=== PATIENT | male | born 1950 | race Caucasian/White ===

== ENCOUNTER → 2017-09-15 | Outpatient (CLI) | payer MEDICARE, MEDICAID ==
--- NOTE | 2017-09-15 15:43 | Diagnostic Imaging Report ---
PROCEDURE: CT abdomen and pelvis without contrast. TECHNIQUE: Multiple contiguous axial images were obtained through the abdomen and pelvis without the use of intravenous contrast. INDICATION: Mid abdominal pain and right flank pain with hematuria. No prior examinations are available for comparison. FINDINGS: The lung bases are clear. Heart size is normal. The liver is normal in size without focal lesions. Gallbladder is surgically absent. There is no biliary ductal dilatation. The spleen is normal. The pancreas and adrenal glands are unremarkable. There is a right renal cyst. There is also a left renal cyst. The appendix is normal. There is no evidence of obstructive uropathy. There is moderate atherosclerotic calcification of the aorta which is nonaneurysmal. Bowel gas pattern is nonspecific. There is no free air. There is no ascites. There are no focal inflammatory changes. There is no pelvic mass or adenopathy. Evaluation of the pelvic structures is limited due to beam hardening artifact from a left hip arthroplasty. There is mild thoracolumbar spondylosis. IMPRESSION: Bilateral renal cysts; however, no evidence of obstructive uropathy. Normal appendix. Moderate thoracolumbar spondylosis. Moderate atherosclerotic calcification of the aorta which is nonaneurysmal. No other acute abnormality in the abdomen or pelvis. Dictated by: Dictated on workstation # [id number]
== END ==
LOC: RAD 15:03
PROVIDERS: ATTEND Urology
DX: N28.1 Cyst of kidney, acquired (principal); M47.815 Spondylosis without myelopathy or radiculopathy, thoracolumbar region; I70.0 Atherosclerosis of aorta
CPT/HCPCS: 74176

== ENCOUNTER 2017-10-14 03:20 | Inpatient (IN) | payer MEDICARE, MEDICAID ==
[~2017-10-14] VITALS: Ht 177.8 cm; Wt 98.5 kg
--- NOTE | 2017-10-14 03:46 | ED General ---
General Chief Complaint: Respiratory Problems Stated Complaint: SOB,DT'S Nursing Triage Note: pt presents to er with complaint of sob and chest pain. states he has been taking percocets for 12-14 years and has not been taking them for the last week. pt states that he is scared to go to sleep and take anything to help him sleep. Nursing Sepsis Screen: No Definite Risk Source of Information: Patient Exam Limitations: No Limitations History of Present Illness Date Seen by Provider: October 14, 2017 Time Seen by Provider: 03:27 Initial Comments Here with report report of not being able to breathe. States that he's been getting this feeling since he has gone off his Xanax and Percocet. He stopped these abruptly one to 2 weeks ago, not really sure exactly which day. He has been having these episodes were he feels like he can't breathe when he lays down and gets very anxious and then just can't sleep or can't go to sleep. States that his stomach feels like it's tied up in knots. Admits that this may be withdrawal symptoms. Denies alcohol or other drugs. States that he couldn' t sleep tonight because he kept waking up startled as he was going to sleep and then was worried that he was going to stop breathing and . Timing/Duration: 1 Week, Intermittent Severity: Moderate Associated Systoms: No Cough, No Fever/Chills, No Nausea/Vomiting, No Shortness of Air, No Weakness Allergies and Home Medications Allergies Coded Allergies: codeine (Verified Allergy, Unknown, 10/14/17) iodine (Verified Allergy, Unknown, 10/14/17) Patient Home Medication List Home Medication List Reviewed: Yes Review of Systems Constitutional: see HPI; No chills, No fever EENTM: no symptoms reported Respiratory: see HPI, short of breath; No wheezing Cardiovascular: No chest pain, No edema; palpitations Gastrointestinal: abdominal pain (central upper); No nausea, No vomiting Genitourinary: no symptoms reported Musculoskeletal: back pain (chronic); No neck pain Skin: no symptoms reported Psychiatric/Neurological: See HPI, Anxiety, Emotional Problems; Denies Headache , Denies Numbness, Denies Paresthesia, Denies Weakness Hematologic/Lymphatic: No Symptoms Reported All Other Systems Reviewed Negative Unless Noted: Yes Past Lwpxupp-Bwushv-Zwlxzf Hx Past Med/Social Hx: Reviewed Nursing Past Med/Soc Hx Patient Social History Alcohol Use: Denies Use Recreational Drug Use: No Smoking Status: Former Smoker 2nd Hand Smoke Exposure: Yes Recent Foreign Travel: No Contact w/Someone Who Travel: No Recent Infectious Disease Expo: No Immunizations Up To Date PED Vaccines UTD: Yes Past Medical History Surgeries: Yes Orthopedic Respiratory: Yes COPD Cardiac: Yes Hypertension Neurological: No Genitourinary: Yes Prostate Problems Musculoskeletal: No Endocrine: No Cancer: No Psychosocial: Yes Sleep Difficulties, Anxiety, Depression Integumentary: Yes Blood Disorders: No Family Medical History Reviewed Nursing Family Hx No Pertinent Family Hx Physical Exam Vital Signs Vital Signs - First Documented 10/14/17 03:26 Temp 98.2 Pulse 73 Resp 15 B/P (MAP) 196/113 (140) Pulse Ox 98 O2 Delivery Room Air Capillary Refill : Less Than 3 Seconds General Appearance: WD/WN, Anxious HEENT: PERRL/EOMI, Pharynx Normal Neck: Non Tender, Supple Respiratory: Lungs Clear, Normal Breath Sounds Cardiovascular: Regular Rate, Rhythm, No Murmur Gastrointestinal: Non Tender, Soft Back: Normal Inspection, No CVA Tenderness, No Vertebral Tenderness Extremity: Normal Range of Motion, Non Tender Neurologic/Psychiatric: Alert, Oriented x3, Other (anxious appearing) Skin: Normal Color, Warm/Dry Progress/Results/Core Measures Suspected Sepsis Recent Fever Within 48 Hours: No Infection Criteria Present: None New/Unexplained Altered Menta: No Sepsis Screen: No Definite Risk SIRS Temperature:98.2 Pulse: 73 Respiratory Rate: 15 Laboratory Tests 10/14/17 04:15: White Blood Count 5.0 Blood Pressure 196 /113 Mean: 140 Laboratory Tests 10/14/17 04:15: Creatinine 1.08, Platelet Count 186, Total Bilirubin 2.1H Results/Orders Lab Results Laboratory Tests Test 10/14/17 04:15 10/14/17 05:43 Range/Units White Blood Count 5.0 4.3-11.0 10^3/uL Red Blood Count 4.22 L 4.35-5.85 10^6/uL Hemoglobin 13.8 13.3-17.7 G/DL Hematocrit 36 L 40-54 % Mean Corpuscular Volume 86 80-99 FL Mean Corpuscular Hemoglobin 33 25-34 PG Mean Corpuscular Hemoglobin Concent 38 H 32-36 G/DL Red Cell Distribution Width 13.1 10.0-14.5 % Platelet Count 186 130-400 10^3/uL Mean Platelet Volume 9.3 7.4-10.4 FL Neutrophils (%) (Auto) 70 42-75 % Lymphocytes (%) (Auto) 19 12-44 % Monocytes (%) (Auto) 11 0-12 % Eosinophils (%) (Auto) 1 0-10 % Basophils (%) (Auto) 0 0-10 % Neutrophils # (Auto) 3.5 1.8-7.8 X 10^3 Lymphocytes # (Auto) 0.9 L 1.0-4.0 X 10^3 Monocytes # (Auto) 0.6 0.0-1.0 X 10^3 Eosinophils # (Auto) 0.0 0.0-0.3 10^3/uL Basophils # (Auto) 0.0 0.0-0.1 10^3/uL Sodium Level 132 L 135-145 MMOL/L Potassium Level 2.7 L 3.6-5.0 MMOL/L Chloride Level 98 98-107 MMOL/L Carbon Dioxide Level 20 L 21-32 MMOL/L Anion Gap 14 5-14 MMOL/L Blood Urea Nitrogen 9 7-18 MG/DL Creatinine 1.08 0.60-1.30 MG/DL Estimat Glomerular Filtration Rate > 60 BUN/Creatinine Ratio 8 Glucose Level 141 H 70-105 MG/DL Calcium Level 9.2 8.5-10.1 MG/DL Total Bilirubin 2.1 H 0.1-1.0 MG/DL Aspartate Amino Transf (AST/SGOT) 45 H 5-34 U/L Alanine Aminotransferase (ALT/SGPT) 23 0-55 U/L Alkaline Phosphatase 35 L 40-136 U/L Troponin I < 0.30 <0.30 NG/ML Total Protein 7.1 6.4-8.2 GM/DL Albumin 4.5 3.2-4.5 GM/DL My Orders Orders - SALOMON BLANCHARD MD Cbc With Automated Diff (10/14/17 03:39) Comprehensive Metabolic Panel (10/14/17 03:39) Troponin I (10/14/17 03:39) Ekg Tracing (10/14/17 03:39) Clonidine Tablet (Catapres Tablet) (10/14/17 04:15) Saline Lock/Iv-Start (10/14/17 04:52) Lactated Ringers (Lr 1000 Ml Iv Solution (10/14/17 04:52) Potassium Chloride (Tablet) (Klor Con Ta (10/14/17 05:00) Lactated Ringers (Lr 1000 Ml Iv Solution (10/14/17 04:49) Ct Abdomen/Pelvis Wo (10/14/17 04:58) Ua Culture If Indicated (10/14/17 05:29) Drug Screen Stat (Urine) (10/14/17 05:29) Ketorolac Injection (Toradol Injection) (10/14/17 05:30) Medications Given in ED Current Medications Medications Dose Ordered Sig/Garrett Route Start Time Stop Time Status Last Admin Dose Admin Clonidine HCl 0.2 mg ONCE ONCE PO 10/14/17 04:15 10/14/17 04:16 DC 10/14/17 04:20 0.2 MG Lactated Ringer's 1,000 ml @ 0 mls/hr Q0M ONCE IV 10/14/17 04:52 10/14/17 04:54 DC 10/14/17 05:01 1,000 MLS/HR Potassium Chloride 40 meq ONCE ONCE PO 10/14/17 05:00 10/14/17 05:01 DC 10/14/17 05:02 40 MEQ Vital Signs/I&O 10/14/17 03:26 Temp 98.2 Pulse 73 Resp 15 B/P (MAP) 196/113 (140) Pulse Ox 98 O2 Delivery Room Air Capillary Refill : Less Than 3 Seconds Blood Pressure Mean: 140 Progress Note : Progress Note Seen and evaluated. labs and EKG ordered. Clonidine 0.2 mg by mouth for hypertension and for possibility of narcotic withdrawal as the cause of symptoms. Monitor patient. 0500: CT abdomen and pelvis without contrast ordered due to complaint of central abdominal pain and fullness. Total bilirubin elevated. Patient denies previous surgeries. Blood pressure is improved. Patient seems confused and withdraw is still a concern. 0530: Cholecystectomy noted on CT scan. Results pending. Patient does not remember ever having his gallbladder out. Records review shows the patient should've been off narcotics for a couple months now but it seems that he may only have been off benzodiazepines for a few days. This may be benzodiazepine withdrawal. I discussed the case with Dr. Sethi. He accepts patient for admission, observation status. Patient does have hypokalemia. KCl 40 mEq by mouth has been given and we will order 40 mEq IV as well. Normal saline 1 L bolus running. Patient is complaining of right hip pain. Toradol 30 mg IV ordered. Patient agrees to admission. ECG Initial ECG Impression Date: October 14, 2017 Initial ECG Impression Time: 03:49 Initial ECG Rate: 68 Initial ECG Rhythm: Normal Sinus Initial ECG Comparisson: No Previous ECG Available Comment Sinus rhythm with normal axis. No evidence of ST elevation CO. Interpreted by me. No previous EKG available for comparison. Diagnostic Imaging Diagonstic Imaging: CT Plain Films/CT/US/NM/MRI: abdomen, pelvis Comments Underdistention versus mild wall thickening of the ascending colon raises concern for mild infectious versus inflammatory colitis, although similar in appearance to prior study. Lipoma ptosis of the colon is also seen which is nonspecific although can be seen and chronic IBD. Correlate clinically. Mild enteritis may present. Consider repeat CT of the abdomen with oral contrast to further evaluate the bowel. Reviewed: Reviewed Night Alexx Study, Reviewed by Me Departure Communication (Admissions) Time/Spoke to Admitting Phy: 05:30 Impression Primary Impression: Altered mental status Qualified Codes: R41.0 - Disorientation, unspecified Additional Impressions: Medication withdrawal Qualified Codes: F13.239 - Sedative, hypnotic or anxiolytic dependence with withdrawal, unspecified Hypokalemia Disposition: ADMITTED INPATIENT Condition: Stable Admissions Decision to Admit Reason: Admit from ER (General) Decision to Admit/Date: October 14, 2017 Time/Decision to Admit Time: 05:30 Departure-Patient Inst. Referrals: LAZARO SETHI DO (PCP/Family) Primary Care Physician SALOMON BLANCHARD MD October 14, 2017 03:46
[2017-10-14] MEDS ORDERED: cloNIDine 0.1 MG (CATAPRES) TAB PO ONE (04:15)
[2017-10-14 04:25] LABS: BASOPHILS % (AUTO) 0 % (0-10); EOSINOPHILS % (AUTO) 1 % (0-10); HEMATOCRIT 36 % (40-54); HEMOGLOBIN 13.8 G/DL (13.3-17.7); LYMPHOCYTES # (AUTO) 0.9 X 10^3 (1.0-4.0); LYMPHOCYTES % (AUTO) 19 % (12-44); MEAN CORPUSCULAR HEMOGLOBIN 33 PG (25-34); MEAN CORPUSCULAR HGB CONC 38 G/DL (32-36); MEAN CORPUSCULAR VOLUME 86 FL (80-99); MEAN PLATELET VOLUME 9.3 FL (7.4-10.4); MONOCYTES # (AUTO) 0.6 X 10^3 (0.0-1.0); MONOCYTES % (AUTO) 11 % (0-12); NEUTROPHILS # (AUTO) 3.5 X 10^3 (1.8-7.8); NEUTROPHILS % (AUTO) 70 % (42-75); PLATELET COUNT 186 10^3/uL (130-400); RED BLOOD COUNT 4.22 10^6/uL (4.35-5.85); RED CELL DISTRIBUTION WIDTH 13.1 % (10.0-14.5)
[2017-10-14 04:42] LABS: ALANINE AMINOTRANSFERASE 23 U/L (0-55); ALBUMIN 4.5 GM/DL (3.2-4.5); ALKALINE PHOSPHATASE 35 U/L (40-136); BILIRUBIN,TOTAL 2.1 MG/DL (0.1-1.0); BUN/CREATININE RATIO 8; CALCIUM 9.2 MG/DL (8.5-10.1); CARBON DIOXIDE 20 MMOL/L (21-32); CHLORIDE 98 MMOL/L (98-107); CREATININE SERUM 1.08 MG/DL (0.60-1.30); GFR ESTIMATED > 60; GLUCOSE 141 MG/DL (70-105); POTASSIUM 2.7 MMOL/L (3.6-5.0); SODIUM 132 MMOL/L (135-145); TOTAL PROTEIN 7.1 GM/DL (6.4-8.2)
[2017-10-14] MEDS ORDERED: LACTATED RINGERS 1,000 ML IV ONE ×2 (04:49→04:52)
[2017-10-14] MEDS ORDERED: KCL 10 MEQ TAB (MICRO K) PO ONE (05:00)
[2017-10-14] MEDS ORDERED: KETOROLAC 30 MG/ML VIAL IVP STA (05:30)
[2017-10-14 05:58] LABS: BILIRUBIN,URINE NEGATIVE (NEGATIVE); CLARITY,URINE CLEAR; COLOR,URINE YELLOW; GLUCOSE, URINE (UA) NEGATIVE (NEGATIVE); KETONES,URINE NEGATIVE (NEGATIVE); LEUKOCYTE ESTERASE ,URINE NEGATIVE (NEGATIVE); NITRITE,URINE NEGATIVE (NEGATIVE); PH,URINE 7 (5-9); PROTEIN,URINE 3+ (NEGATIVE); UROBILINOGEN,URINE 1 MG/DL (NORMAL)
[2017-10-14 06:16] LABS: AMPHETAMINE SCREEN, URINE NEGATIVE (NEGATIVE); BARBITURATE SCREEN URINE NEGATIVE (NEGATIVE); BENZODIAZEPINES SCREEN URINE POSITIVE (NEGATIVE); CANNABINOID SCREEN, URINE NEGATIVE (NEGATIVE); COCAINE SCREEN URINE NEGATIVE (NEGATIVE); METHADONE STAT NEGATIVE (NEGATIVE); METHAMPHETAMINE SCREEN URINE S NEGATIVE (NEGATIVE); OPIATE SCREEN URINE NEGATIVE (NEGATIVE); OXYCODONE STAT NEGATIVE (NEGATIVE); PROPOXYPHENE STAT NEGATIVE (NEGATIVE); TRICYCLIC ANTIDEPRESSANTS SCRE NEGATIVE (NEGATIVE)
[2017-10-14] MEDS ORDERED: PANT40TA3 PO (06:18)
[2017-10-14] MEDS ORDERED: AMLO2.5T PO (06:19)
[2017-10-14] MEDS ORDERED: OFLO5DRO3 OS (06:19)
[2017-10-14] MEDS ORDERED: TAMS0.4C2 PO (06:19)
[2017-10-14] MEDS ORDERED: LOSA100T28 PO (06:19)
[2017-10-14] MEDS ORDERED: METO-395 PO (06:19)
[2017-10-14 06:29] LABS: BACTERIA,URINE NEGATIVE /HPF; SQUAMOUS EPITHELIAL CELL,UR RARE /HPF
[2017-10-14] MEDS ORDERED: NS IV 1000 ML 1,000 ML ONE (07:06)
[2017-10-14] MEDS ORDERED: cloNIDine 0.2 MG (CATAPRES) TAB PO PRN (07:15)
[2017-10-14] MEDS: NS IV 1000 ML 1,000 ML IV SCH ×2 (07:48→17:39)
[2017-10-14 08:00] VITALS: BP 168/83
--- NOTE | 2017-10-14 08:05 | Diagnostic Imaging Report ---
PROCEDURE: CT abdomen and pelvis without contrast. TECHNIQUE: Multiple contiguous axial images were obtained through the abdomen and pelvis without the use of intravenous contrast. INDICATION: Abdominal pain and fullness. Exam compared 09/15/2017. There are no opaque kidney stones. There is no hydronephrosis. Bilateral low density renal nodule is unchanged likely cystic. The gallbladder surgically absent with no pathological bile duct dilatation. Spleen, adrenals and pancreas are unremarkable. Aortoiliac vessels are atherosclerotic but nonaneurysmal. There is noninflamed sigmoid diverticulosis. No perienteric or pericolonic edema. There is no focal inflammatory process. There is incomplete distention of segments of the colon and along with the absence of enteric and vascular contrast media limit sensitivity for evaluating the bowel wall. No acute abnormality, however, identified. There is no ascites, obstruction or free air. No pneumatosis. IMPRESSION: No obstructive features, inflammatory process or acute abnormalities identified. Unchanged from prior. Dictated by: Dictated on workstation # [id number]
[2017-10-14] MEDS ORDERED: FLUT16SP22 NS (08:23)
--- NOTE | 2017-10-14 08:32 | History & Physicial ---
History of Present Illness History of Present Illness Reason for visit/HPI Patient states he does not feel good. Patient states he got lost coming to the emergency room via [place]. Patient states she's supposed to have surgery tomorrow on his right hip. Patient says he has sores on his arms and spoke to the surgeon and told not to have surgery as long as he has any sores. Patient states he's recently got off Xanax. Patient confused. She gives different stories to different people. Patient states he has bedbugs at home and that swelling he has the sores Date of Admission October 14, 2017 at 05:35 Time Seen by Provider: 08:25 I consulted on this patient on 10/14/17 08:26 Attending Physician Aden Sethi DO Admitting Physician Aden Sethi DO Consult Allergies and Home Medications Allergies Coded Allergies: codeine (Verified Allergy, Unknown, 10/14/17) iodine (Verified Allergy, Unknown, 10/14/17) Home Medications Amlodipine Besylate 2.5 Mg Tablet, 2.5 MG PO DAILY, (Reported) Fluticasone Propionate 16 Gm [place].susp, 2 SPRAYS NS DAILY, (Reported) Losartan Potassium 100 Mg Tablet, 100 MG PO DAILY, (Reported) Metoprolol Succinate 100 Mg Tab.er.24h, 100 MG PO DAILY, (Reported) Pantoprazole Sodium 40 Mg Tablet.dr, 40 MG PO DAILY, (Reported) Tamsulosin HCl 0.4 Mg Cap.er.24h, 0.4 MG PO 1730, (Reported) Patient Home Medication List Home Medication List Reviewed: No Past Gcgfunt-Dacwuf-Jdrjmo Hx Patient Social History Alcohol Use: Denies Use Recreational Drug Use: No Smoking Status: Former Smoker 2nd Hand Smoke Exposure: Yes Recent Foreign Travel: No Contact w/other who traveled: No Recent Infectious Disease Expo: No Immunizations Up To Date Pediatric: Yes Surgeries Yes Orthopedic Respiratory Yes Cardiovascular Yes Hypertension Neurological No Genitourinary Yes Prostate Problems Musculoskeletal No Endocrine History of Endocrine Disorders: No Cancer No Psychosocial History of Psychiatric Problem: Yes Behavioral Health Disorders: Sleep Difficulties, Anxiety, Depression Integumentary History of Skin or Integumenta: Yes Blood Transfusions History of Blood Disorders: No Family Medical History Significant Family History: No Pertinent Family Hx Constitutional: weakness EENTM: no symptoms reported Respiratory: no symptoms reported Cardiovascular: no symptoms reported Gastrointestinal: abdominal pain Genitourinary: no symptoms reported Physical Exam Vital Signs Vital Signs - First Documented 10/14/17 03:26 Temp 98.2 Pulse 73 Resp 15 B/P (MAP) 196/113 (140) Pulse Ox 98 O2 Delivery Room Air Capillary Refill : Less Than 3 Seconds General Appearance: No Apparent Distress, WD/WN Eyes: Bilateral Eye Normal Inspection HEENT: Normal ENT Inspection Neck: Full Range of Motion, Normal Inspection, Non Tender Respiratory: Chest Non Tender, No Accessory Muscle Use, No Respiratory Distress Cardiovascular: Regular Rate, Rhythm, No Murmur Gastrointestinal: Non Tender Assessment/Plan Assessment and Plan Hypokalemia. Xanax withdrawal. Confusion. Hypertension. Right hip problem Admission Diagnosis Admission Status: Observation ADEN SETHI DO October 14, 2017 08:32
[2017-10-14] MEDS: meTOprolol SUCCINATE 100 MG (TOPROL XL) TAB PO SCH (08:44)
[2017-10-14] MEDS: POTASSIUM CL 10 MEQ/50 ML IVPB (PRE-MIX) IV SCH ×4 (08:44→12:59)
[2017-10-14] MEDS ORDERED: PRED5DRO3 OS (09:17)
[2017-10-14] MEDS ORDERED: ALPR1TAB7 PO (09:17)
[2017-10-14] MEDS ORDERED: AMLO5TAB2 PO (09:20)
[2017-10-14 12:00] VITALS: BP 172/84
[2017-10-14] MEDS: ENOXAPARIN 40 MG/0.4 ML (LOVENOX) SYR SC SCH (12:59)
[2017-10-14 16:30] VITALS: BP 128/71
[2017-10-14 20:23] VITALS: BP 147/83
[2017-10-15] VITALS: BP 160/79
[2017-10-15 03:24] VITALS: BP 170/83
[2017-10-15] MEDS: NS IV 1000 ML 1,000 ML IV SCH (03:44)
--- NOTE | 2017-10-15 07:15 | Progress Note (SOAP) ---
Subjective Time Seen by Provider: 07:05 Subjective/Events-last exam Patient had some confusion early this morning. Waiting for psych consult. Already done Patient breaking out on body better area Patient did not sleep last night Objective Exam Vital Signs Date Time Temp Pulse Resp B/P (MAP) Pulse Ox O2 Delivery O2 Flow Rate FiO2 10/15/17 03:24 98.8 52 20 170/83 (112) 97 Room Air 10/15/17 01:00 53 10/15/17 00:00 98.8 60 20 160/79 (106) 97 Room Air 10/14/17 20:23 99.0 57 20 147/83 (104) 97 Room Air 10/14/17 19:00 67 10/14/17 16:30 97.1 62 20 128/71 (90) 97 Room Air 10/14/17 12:00 99.1 56 20 172/84 (113) 97 Room Air 10/14/17 09:00 Room Air 10/14/17 08:21 97 Room Air 10/14/17 08:00 99.1 63 22 168/83 (111) 97 Room Air I & O 10/15/17 07:00 Intake Total 1930 ml Balance 1930 ml Capillary Refill : Less Than 3 SecondsLess Than 3 Seconds General Appearance: No Apparent Distress, WD/WN HEENT: Normal ENT Inspection Neck: Full Range of Motion, Normal Inspection Respiratory: No Accessory Muscle Use, No Respiratory Distress Cardiovascular: Regular Rate, Rhythm Assessment/Plan Assessment/Plan Assess & Plan/Chief Complaint Hypokalemia. Withdrawal from benzodiazepine. Hypertension. Insomnia. Confusion this a.m. Clinical Quality Measures Admission Status Admission Dx Hypokalemia. Xanax withdrawal. Confusion. Hypertension. Right hip problem DVT/VTE Risk/Contraindication: Risk Factor Score Per Nursin RFS Level Per Nursing on Admit: 4+=Very High LAZARO SETHI DO October 15, 2017 07:15
[2017-10-15 07:25] VITALS: BP 164/86
[2017-10-15 08:09] LABS: HEMOGLOBIN 12.3 G/DL (13.3-17.7); MEAN PLATELET VOLUME 9.4 FL (7.4-10.4); RED BLOOD COUNT 3.77 10^6/uL (4.35-5.85); RED CELL DISTRIBUTION WIDTH 13.7 % (10.0-14.5); WHITE BLOOD COUNT 4.2 10^3/uL (4.3-11.0)
[2017-10-15 08:29] LABS: BUN/CREATININE RATIO 10; CALCIUM 8.6 MG/DL (8.5-10.1); CARBON DIOXIDE 25 MMOL/L (21-32); CHLORIDE 103 MMOL/L (98-107); CREATININE SERUM 0.84 MG/DL (0.60-1.30); GFR ESTIMATED > 60; GLUCOSE 107 MG/DL (70-105); POTASSIUM 3.4 MMOL/L (3.6-5.0); SODIUM 135 MMOL/L (135-145)
[2017-10-15] MEDS: LOSARTAN 100 MG (COZAAR) TABLET PO SCH (08:49)
[2017-10-15] MEDS: TAMSULOSIN 0.4 MG (FLOMAX) CAP PO SCH (08:49)
[2017-10-15] MEDS: amLODIPine 5 MG (NORVASC) TAB PO SCH (08:49)
[2017-10-15] MEDS: ALPRAZolam 1 MG (XANAX) TAB PO SCH ×2 (08:49→12:24)
[2017-10-15] MEDS: meTOprolol SUCCINATE 100 MG (TOPROL XL) TAB PO SCH ×2 (08:49)
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
[2017-10-15 12:00] VITALS: BP 155/73
[2017-10-15] MEDS: ENOXAPARIN 40 MG/0.4 ML (LOVENOX) SYR SC SCH (12:24)
[2017-10-15 15:36] VITALS: BP 136/73
[2017-10-15 20:04] VITALS: BP 140/80
[2017-10-15] MEDS: busPIRone 10 MG (BUSPAR) TAB PO SCH (20:19)
[2017-10-15] MEDS ORDERED: KCL 10 MEQ TAB (MICRO K) PO NR (21:00)
[2017-10-15] MEDS ORDERED: KCL 10 MEQ TAB (MICRO K) PO SCH (21:00)
[2017-10-16] VITALS (8 sets, daily range): BP systolic 138–186; BP diastolic 73–99
[2017-10-16 05:27] LABS: HEMOGLOBIN 13.3 G/DL (13.3-17.7); MEAN PLATELET VOLUME 9.6 FL (7.4-10.4); RED BLOOD COUNT 4.07 10^6/uL (4.35-5.85); RED CELL DISTRIBUTION WIDTH 13.3 % (10.0-14.5); WHITE BLOOD COUNT 4.8 10^3/uL (4.3-11.0)
[2017-10-16 05:44] LABS: BUN/CREATININE RATIO 13; CALCIUM 8.8 MG/DL (8.5-10.1); CARBON DIOXIDE 23 MMOL/L (21-32); CHLORIDE 102 MMOL/L (98-107); CREATININE SERUM 1.02 MG/DL (0.60-1.30); GFR ESTIMATED > 60; GLUCOSE 104 MG/DL (70-105); POTASSIUM 3.4 MMOL/L (3.6-5.0); SODIUM 135 MMOL/L (135-145)
--- NOTE | 2017-10-16 07:31 | Progress Note (SOAP) ---
Subjective Time Seen by Provider: 07:30 Subjective/Events-last exam Patient doesn't show confusion. Patient doing better. Patient stable. Patient appears to have dementia. Patient to be evaluated for dementia. Patient lives alone. To get social work program coordinator involved. Objective Exam Vital Signs Date Time Temp Pulse Resp B/P (MAP) Pulse Ox O2 Delivery O2 Flow Rate FiO2 10/16/17 04:57 98.2 65 18 155/75 (101) 98 Room Air 10/16/17 01:00 75 10/16/17 00:00 97.0 65 20 162/83 (109) 98 Room Air 10/15/17 20:04 98.9 70 18 140/80 (100) 95 Room Air 10/15/17 19:00 67 10/15/17 15:36 98.7 69 18 136/73 (94) 97 Room Air 10/15/17 13:00 67 10/15/17 12:00 99.0 64 20 155/73 (100) 96 Room Air I & O 10/16/17 07:00 Intake Total 1910 ml Output Total 1600 ml Balance 310 ml Capillary Refill : Less Than 3 SecondsLess Than 3 Seconds General Appearance: No Apparent Distress HEENT: Normal ENT Inspection Neck: Full Range of Motion, Normal Inspection Respiratory: Lungs Clear, No Accessory Muscle Use, No Respiratory Distress Cardiovascular: Regular Rate, Rhythm Gastrointestinal: non tender, soft Results Lab Laboratory Tests 10/15/17 07:52 10/16/17 05:20 Laboratory Tests 10/15/17 07:52: White Blood Count 4.2L, Red Blood Count 3.77L, Hemoglobin 12.3L, Hematocrit 33L , Mean Corpuscular Volume 88, Mean Corpuscular Hemoglobin 33, Mean Corpuscular Hemoglobin Concent 37H, Red Cell Distribution Width 13.7, Platelet Count 162, Mean Platelet Volume 9.4, Sodium Level 135, Potassium Level 3.4L, Chloride Level 103, Carbon Dioxide Level 25, Anion Gap 7, Blood Urea Nitrogen 8, Creatinine 0.84, Estimat Glomerular Filtration Rate > 60, BUN/Creatinine Ratio 10, Glucose Level 107H, Calcium Level 8.6 10/16/17 05:20: White Blood Count 4.8, Red Blood Count 4.07L, Hemoglobin 13.3, Hematocrit 36L, Mean Corpuscular Volume 88, Mean Corpuscular Hemoglobin 33, Mean Corpuscular Hemoglobin Concent 37H, Red Cell Distribution Width 13.3, Platelet Count 160, Mean Platelet Volume 9.6, Sodium Level 135, Potassium Level 3.4L, Chloride Level 102, Carbon Dioxide Level 23, Anion Gap 10, Blood Urea Nitrogen 13, Creatinine 1.02, Estimat Glomerular Filtration Rate > 60, BUN/Creatinine Ratio 13, Glucose Level 104, Calcium Level 8.8 Assessment/Plan Assessment/Plan Assess & Plan/Chief Complaint Hypokalemia. Withdrawal from benzodiazepine. Hypertension. Insomnia. Confusion this a.m. . 10/16/17. Hypokalemia basically resolved. Withdrawal from benzodiazepine. Withdrawal from Percocet. Hypertension better. Insomnia. Patient appears to have dementia to have this checked out. To get social work program coordinator involved Clinical Quality Measures Admission Status Admission Dx Hypokalemia. Xanax withdrawal. Confusion. Hypertension. Right hip problem DVT/VTE Risk/Contraindication: Risk Factor Score Per Nursin RFS Level Per Nursing on Admit: 4+=Very High LAZARO SETHI DO October 16, 2017 07:31
[2017-10-16] MEDS: meTOprolol SUCCINATE 100 MG (TOPROL XL) TAB PO SCH ×2 (07:37→08:11)
[2017-10-16] MEDS ORDERED: KCL 10 MEQ TAB (MICRO K) PO NR (07:44)
[2017-10-16] MEDS: busPIRone 10 MG (BUSPAR) TAB PO SCH (08:11)
[2017-10-16] MEDS: LOSARTAN 100 MG (COZAAR) TABLET PO SCH (08:11)
[2017-10-16] MEDS: TAMSULOSIN 0.4 MG (FLOMAX) CAP PO SCH (08:11)
[2017-10-16] MEDS: amLODIPine 5 MG (NORVASC) TAB PO SCH (08:11)
[2017-10-16] MEDS: ENOXAPARIN 40 MG/0.4 ML (LOVENOX) SYR SC SCH (11:43)
[2017-10-16] MEDS ORDERED: ALPRAZolam 1 MG (XANAX) TAB PO NR (13:47)
--- NOTE | 2017-10-16 14:50 | ST Cognitive Linguistic Eval ---
Speech Evaluation-General Medical Diagnosis Hypokalemia Onset Date: October 16, 2017 Therapy Diagnosis Therapy Diagnosis: Mild Cognitive Deficit, Confusion Precautions Precautions/Isolations: Standard Precautions Referral Referring Physician: Dr. Aden Servin Reason for Referral: Evaluation/Treatment Cognitive Evaluation Medical History Pertinent Medical History: HTN Current History The patient was recently admitted to [facility] with a diagnosis of hypokalemia and withdrawal from Xanax. Per RN, the patient has conversed appropriately, however, does appear to being displaying withdrawal symptoms. Reviewed History: Yes Speech PLF-Current Status Prior Level of Function The patient denied prior challenges with speech, language, or cognition. To note, the patient has only completed a ninth grade education prior to enlisting in the [employer]. Per patient, "I'm not too good at the mind stuff but I'm not crazy." Subjective The patient was seated upright in bed upon entrance. The patient greeted the clinician appropriately and was agreeable to participation in the cognitive evaluation. Per patient, "I understand you are just doing what they ask but I am telling you, I'm not crazy. My life is all over the place right now and I need these meds done right." While the patient was verbose, he remained appropriate and respectful to the clinician throughout the entirety of the evaluation. Language Eval: Auditory Comprehends Simple Yes/No Ques: Functional Indent/Objects Multiple Gaspar: Functional Ident/Pics in Multiple Gaspar: Functional Follows 1-Step Commands: Functional Follows General Conversations: Functional (The patient is able to follow general conversation, however, does require redirection to topics as he is often verbose and tangential.) Language Eval: Verbal Language Completes Spontaneous Greeting: Functional Produces Auto, Serial Info: Functional Imitates Simple Words/Phrases: Functional Word Finding: Mild (The patient was able to provide 9 words within a one minute duration (WNL=11).) Requests Basic Needs: Functional (The patient does perseverate on needs, however, requests items appropriately.) States Basic Personal Info: Functional Expresses Complex Ideas: Functional (The patient was able to provide a detailed medical and family history to the clinician.) Language Evaluation: Reading Per patient, "I'm not a good reader. I don't read much at all." Cognitive Patient Orientation The patient was independently oriented to month, day of week, date, year, location, and city. Objective Cognitive Domain Attention: Mild (The patient was unable to attend to a specific task for a duration of two minutes. Frequent redirection to topic and exercise was required. The patient appeared easily distracted and somewhat paranoid regarding specific physicians ("Dr. Tanner is why I am in this mess. I never asked for these opiates.") Memory: Mild (The patient was able to recall all medication, as well as, doses. The patient recalled three of five items following a five minute delay.) Problem Solving: Mild (The patient appears impulsive which places him at a high risk for reduced and poor safety problem solving.) Executive Functions: Moderate (The patient was unable to complete trail-making or cube copying tasks.) Clock Drawing Severity Rating: WNL Objective Formal/Standardized Tests Geovnai Cognitive Assessment- Version One (MoCA) Results The patient demonstrated a result of +22/30 on the MoCA which correlates to a mild cognitive impairment. Impression The patient displays a mild cognitive impairment in the areas of executive function, attention, and memory. The patient appears mostly appropriate for support provided by a psychological area of practice as he has several aspects of his life that would be somewhat traumatic (divorce, stressed relationship with family, some level of withdrawal). The clinician is unable to state if the patient is an "addict" as this is outside of her scope of practice and more appropriate for a medical physician or psychiatrist. The clinician can state the patient would benefit from emotional and skilled support throughout this difficult time. At this time, the clinician recommends supervision for safety upon discharge. Speech-Plan Treatment Plan Speech Therapy Treatment Plan: Discontinue ST Evaluation, only. 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
[2017-10-16] MEDS: ALPRAZolam 1 MG (XANAX) TAB PO SCH (21:15)
[2017-10-17 03:59] VITALS: BP 160/84
[2017-10-17 06:42] LABS: BUN/CREATININE RATIO 18; CARBON DIOXIDE 23 MMOL/L (21-32); CHLORIDE 102 MMOL/L (98-107); CREATININE SERUM 0.95 MG/DL (0.60-1.30); GFR ESTIMATED > 60; GLUCOSE 104 MG/DL (70-105); POTASSIUM 3.6 MMOL/L (3.6-5.0); SODIUM 135 MMOL/L (135-145)
--- NOTE | 2017-10-17 07:42 | Progress Note (SOAP) ---
Subjective Time Seen by Provider: 07:40 Subjective/Events-last exam Patient had an uneventful night. Patient doing better. Plan to discharge patient today on Xanax. Patient to be seen in office this Friday Patient has anxiety Objective Exam Vital Signs Date Time Temp Pulse Resp B/P (MAP) Pulse Ox O2 Delivery O2 Flow Rate FiO2 10/17/17 03:59 98.2 71 18 160/84 (109) 96 Room Air 10/17/17 01:00 63 10/16/17 23:57 97.7 72 18 138/73 (94) 96 Room Air 10/16/17 20:09 98.9 73 18 142/81 (101) 95 Room Air 10/16/17 19:00 60 10/16/17 16:00 97.2 64 16 154/79 (104) 98 Room Air 10/16/17 13:00 62 10/16/17 12:00 98.6 68 24 156/74 (101) 96 Room Air 10/16/17 09:00 98.6 68 20 173/75 (107) 96 Room Air 10/16/17 08:00 22 186/99 (128) 10/16/17 08:00 98.3 58 96 I & O 10/17/17 07:00 Intake Total 1130 ml Output Total 500 ml Balance 630 ml Capillary Refill : Less Than 3 SecondsLess Than 3 Seconds General Appearance: No Apparent Distress, WD/WN HEENT: Normal ENT Inspection Neck: Full Range of Motion, Normal Inspection Respiratory: No Accessory Muscle Use, No Respiratory Distress Results Lab Laboratory Tests 10/17/17 05:48: Sodium Level 135, Potassium Level 3.6, Chloride Level 102, Carbon Dioxide Level 23, Anion Gap 10, Blood Urea Nitrogen 17, Creatinine 0.95, Estimat Glomerular Filtration Rate > 60, BUN/Creatinine Ratio 18, Glucose Level 104, Calcium Level 9.0 Assessment/Plan Assessment/Plan Assess & Plan/Chief Complaint Hypokalemia. Withdrawal from benzodiazepine. Hypertension. Insomnia. Confusion this a.m. . 10/16/17. Hypokalemia basically resolved. Withdrawal from benzodiazepine. Withdrawal from Percocet. Hypertension better. Insomnia. Patient appears to have dementia to have this checked out. To get social worker delinquency prevention involved. . 10/17/17. Hypokalemia resolved. Patient anxious. Patient to be some home with the lower dose of Xanax. Insomnia. Patient to be seen in office this Friday Clinical Quality Measures Admission Status Admission Dx Hypokalemia. Xanax withdrawal. Confusion. Hypertension. Right hip problem DVT/VTE Risk/Contraindication: Risk Factor Score Per Nursin RFS Level Per Nursing on Admit: 4+=Very High LAZARO SETHI DO October 17, 2017 07:42
[2017-10-17] MEDS ORDERED: ALPR1TAB2 PO (07:45)
--- NOTE | 2017-10-17 07:53 | Discharge Inst-Simple/Standard ---
Discharge Inst-Standard Patient Instructions/Follow Up Plan of Care/Instructions/FU: 2 office on Friday at 11 a.m. Activity as Tolerated: Yes Discharge Diet: No Restrictions Planned Outpatient Orders/Ref. Pneu Vac Indicated: Yes LAZARO SETHI DO October 17, 2017 07:53
[2017-10-17 08:06] VITALS: BP 125/83
[2017-10-17] MEDS: ALPRAZolam 1 MG (XANAX) TAB PO SCH ×2 (09:40→20:29)
[2017-10-17] MEDS: LOSARTAN 100 MG (COZAAR) TABLET PO SCH (09:40)
[2017-10-17] MEDS: TAMSULOSIN 0.4 MG (FLOMAX) CAP PO SCH (09:40)
[2017-10-17] MEDS: meTOprolol SUCCINATE 100 MG (TOPROL XL) TAB PO SCH ×2 (09:40)
[2017-10-17] MEDS: amLODIPine 5 MG (NORVASC) TAB PO SCH (09:40)
[2017-10-17] MEDS: ENOXAPARIN 40 MG/0.4 ML (LOVENOX) SYR SC SCH (12:57)
--- NOTE | 2017-10-17 14:01 | Physical Therapy Evaluation ---
PT Evaluation-General Medical Diagnosis Admission Date October 16, 2017 at 13:50 Medical Diagnosis: Hypokalemia Onset Date: October 16, 2017 Therapy Diagnosis Therapy Diagnosis: generalized debility Height/Weight Height (Feet): 5 Height (Inches): 10.00 Weight (Pounds): 217 Weight (Ounces): 4.0 Precautions Precautions/Isolations: Fall Prevention, Standard Precautions Weight Bear Status Right Lower Extremity: Right Full Weight Bearing Left Lower Extremity: Left Full Weight Bearing Referral Physician: Gareth Reason for Referral: Evaluation/Treatment Medical History Pertinent Medical History: COPD, HTN Current History ED with c/o SOA, DT's, abruptly stopped xanax and percocet Reviewed History: Yes Social History Home: Single Level Current Living Status: Alone Prior/Core FIM Prior Level of Function Functional Bureau Measure 0=Not Assessed/NA 4=Minimal Assistance 1=Total Assistance 5=Supervision or Setup 2=Maximal Assistance 6=Modified Bureau 3=Moderate Assistance 7=Complete Bureau Bed Mobility: 7 Transfers (B,C,W/C) (FIM): 7 Gait: 6 uses cane PLOF PT Evaluation-Current Subjective Patient agrees to PT. Pain Numeric Pain Scale: 0-No Pain Location: No Pain Reported Objective Patient Orientation: Normal For Age Problem Solving: Fair ROM/Strength ROM Lower Extremities bilateral LE WNL Strength Lower Extremities 4+/5 grossly bilaterally Integumentary/Posture Integumentary refer to nursing notes Bowel Incontinence: No Bladder Incontinence: No Posture WFL Neuromuscular (Tone, Coordination, Reflexes) grossly intact Sensory Vision: Functional Hearing: Functional Sensation Right Lower Extremit: Intact Sensation Left Lower Extremity: Intact Transfers Functional Bureau Measure 0=Not Assessed/NA 4=Minimal Assistance 1=Total Assistance 5=Supervision or Setup 2=Maximal Assistance 6=Modified Bureau 3=Moderate Assistance 7=Complete Bureau Transfers (B, C, W/C) (FIM): 7 Scootin Rollin Supine to/from Sit: 7 Sit to/from Stand: 7 Gait Mode of Locomotion: Walk Anticipated Mode of Locomotion: Walk Gait (FIM): 6 Distance (FIM): 3=150 ft Distance: 600' Gait Level of Assist: 6 Gait Assistive Device: Cane Single Point Comments/Gait Description safe and functional Balance Sitting Static: Normal Sitting Dynamic: Normal Standing Static: Normal Standing Dynamic: Normal Assessment/Needs 67 y.o. male, is currently at [facility] independent to [facility] PLOF with all gross motor skills safely. No skilled PT indicated. Rehab Potential: Good PT Plan Treatment/Plan Treatment Plan: Discontinue PT, goals met Treatment Plan: Other Treatment Duration: October 17, 2017 Frequency: 1 time per week Estimated Hrs Per Day: .25 hour per day Patient and/or Family Agrees t: Yes Time/GCodes Time In: 1315 Time Out: 1330 Total Billed Treatment Time: 15 Total Billed Treatment 1 visit EVModC 15 min G Codes Necessary: No PT/OT Therapy GCodes Functional Limitation-Current Modifier: PATIENCE Functional Limitation-Goal Modifier: DHRUV ELKINS PT October 17, 2017 14:01
[2017-10-17 15:32] VITALS: BP 141/82
[2017-10-18 00:13] VITALS: BP 129/70
[2017-10-18 07:49] VITALS: BP 155/80
--- NOTE | 2017-10-18 08:01 | Discharge Summary-Hospitalist ---
Diagnosis/Chief Complaint Date of Admission October 16, 2017 at 13:50 Date of Discharge Discharge Date: October 18, 2017 Discharge Diagnosis (1) Withdrawal from benzodiazepine Status: Resolved (2) Delirium, acute Status: Acute (3) Hip pain, right Status: Chronic (4) Debility Status: Chronic Discharge Summary Discharge Physical Exam Allergies: Coded Allergies: codeine (Verified Allergy, Unknown, 10/14/17) iodine (Verified Allergy, Unknown, 10/14/17) Vitals & I&Os Vital Signs Date Time Temp Pulse Resp B/P (MAP) Pulse Ox O2 Delivery O2 Flow Rate FiO2 10/18/17 10:18 10/18/17 07:49 97.9 61 20 98 Room Air General Appearance: Alert, Oriented X3, Cooperative, Other (chronically ill) Respiratory: Clear to Auscultation, Normal Air Movement Cardiovascular: Regular Rate, Normal S1, Normal S2 Neuro: Normal Gait, Normal Speech, Strength at 5/5 X4 Ext Hospital Course Hospital course: Patient had a brief Hospital course he was admitted due to delirium and benzodiazepine withdrawal. Patient was supported and monitor closely and delirium did resolve. At time of discharge patient felt well was eating and drinking bowels are moving and he was agreeing for discharge. Labs (last 24 hrs) Patient resulted labs reviewed. Discussion & Recommendations Discharge Planning: <30 minutes discharge planning Discharge Home Medications: Active Scripts Active Xanax (Alprazolam) 1 Mg Tablet 1 Mg PO BID 7 Days Reported Amlodipine Besylate 5 Mg Tablet 5 Mg PO DAILY Pred Mild (Prednisolone Acetate) 5 Ml Drops.susp 1 Drop OS DAILY START 3 DAYS PRIOR TO SURGERY AND USE 30 DAYS AFTER SURGERY 1% Fluticasone Propionate 16 Gm Mercer.susp 1 Mercer NS BID Tamsulosin HCl 0.4 Mg Cap.er.24h 0.4 Mg PO DAILY Losartan Potassium 100 Mg Tablet 100 Mg PO DAILY Metoprolol Succinate 100 Mg Tab.er.24h 100 Mg PO DAILY Ofloxacin 5 Ml Drops 1 Drop OS UD 3 TIMES DAILY BEFORE SURGERY AND 4 TIMES DAILY AFTER SURGERY FOR 14 DAYS Pantoprazole Sodium 40 Mg Tablet.dr 40 Mg PO DAILY Instructions to patient/family Please see electronic discharge instructions given to patient. 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
[2017-10-18] MEDS: meTOprolol SUCCINATE 100 MG (TOPROL XL) TAB PO SCH ×2 (09:02)
[2017-10-18] MEDS: LOSARTAN 100 MG (COZAAR) TABLET PO SCH (09:02)
[2017-10-18] MEDS: TAMSULOSIN 0.4 MG (FLOMAX) CAP PO SCH (09:02)
[2017-10-18] MEDS: amLODIPine 5 MG (NORVASC) TAB PO SCH (09:02)
[2017-10-18] MEDS: ALPRAZolam 1 MG (XANAX) TAB PO SCH (09:02)
== END 2017-10-18 10:18 | disposition home or self-care (01) | DRG 897 ==
LOC: EDUNIT# 03:20 → ER 03:23 → UNDOADMOB 05:35 → 4TH 05:35 → UNDOADMOB 06:50 → 4TH 06:50 → INTOOBSV 10-16 13:50 → OBSVTOIN 10-16 13:50 → UNDODISIN 10-18 10:18
PROVIDERS: ADMIT Family Medicine; ATTEND Family Medicine
DX: F13.231 Sedative, hypnotic or anxiolytic dependence with withdrawal delirium (principal); F13.232 Sedative, hypnotic or anxiolytic dependence with withdrawal with perceptual disturbance; F11.23 Opioid dependence with withdrawal; E87.6 Hypokalemia; I10 Essential (primary) hypertension; G47.00 Insomnia, unspecified; F03.90 Unspecified dementia, unspecified severity, without behavioral disturbance, psychotic disturbance, mood disturbance, and anxiety; R53.81 Other malaise; M25.551 Pain in right hip; F41.9 Anxiety disorder, unspecified
CPT/HCPCS: 36415; 74176; 80048; 80053; 80306; 81000; 84484; 85025; 85027; 93005; 94760; G0378

== ENCOUNTER → 2019-06-15 | Outpatient (CLI) | payer MEDICARE, MEDICAID ==
[~2019-06-15] MED LIST: ALPR1TAB2 PO; ALPR1TAB7 PO; AMLO2.5T4 PO; AMLO5TAB9 PO; FLUT16SP22 NS; LOSA100T57 PO; METO-395 PO; OFLO5DRO3 OS; PANT40TA3 PO; PRED5DRO3 OS; TAMS0.4C2 PO
--- NOTE | 2019-06-15 10:29 | Diagnostic Imaging Report ---
INDICATION: Lower abdominal pain. TIME OF EXAM: 10:07 AM FINDINGS: There are surgical clips in right upper quadrant. No definite free air is identified. Bowel gas pattern is nonobstructed. No pathologic calcifications are seen. Postop changes left hip arthroplasty are noted. There are severe osteoarthritic changes to the right hip with complete loss of the superior joint space. IMPRESSION: 1. No acute feature in the abdomen is identified. 2. Severe right hip osteoarthritic changes. Dictated by: Dictated on workstation # [id number]
== END ==
LOC: RAD 09:48
PROVIDERS: ATTEND Family Medicine
DX: M16.11 Unilateral primary osteoarthritis, right hip (principal); R10.30 Lower abdominal pain, unspecified; R14.0 Abdominal distension (gaseous); Z96.642 Presence of left artificial hip joint
CPT/HCPCS: 74018

== ENCOUNTER → 2022-10-22 | Outpatient (CLI) | payer MEDICARE ==
[~2022-10-22] MED LIST changes: +AMLO-250 PO; -AMLO5TAB9 PO; -METO-395 PO; +MTP100TCR PO; -OFLO5DRO3 OS; +OFLO5DRO8 OS; -PANT40TA3 PO; +PANT40TA52 PO
[2022-10-22 11:45] LABS: HEMATOCRIT 45 % (40-54); MEAN CORPUSCULAR HEMOGLOBIN 29 pg (25-34); MEAN CORPUSCULAR HGB CONC 36 g/dL (32-36); MEAN CORPUSCULAR VOLUME 80 fL (80-99); MEAN PLATELET VOLUME 9.1 fL (9.0-12.2); PLATELET COUNT 271 10^3/uL (130-400); WHITE BLOOD COUNT 8.2 10^3/uL (4.3-11.0)
[2022-10-22 12:05] LABS: ALANINE AMINOTRANSFERASE 22 U/L (0-55); ALBUMIN 4.8 GM/DL (3.2-4.5); ALKALINE PHOSPHATASE 57 U/L (40-136); BILIRUBIN,TOTAL 1.3 MG/DL (0.1-1.0); BUN/CREATININE RATIO 9; CALCIUM 9.2 MG/DL (8.5-10.1); CARBON DIOXIDE 21 MMOL/L (21-32); CHLORIDE 92 MMOL/L (98-107); CREATININE SERUM 1.51 MG/DL (0.60-1.30); GFR ESTIMATED 49; GLUCOSE 142 MG/DL (70-105); POTASSIUM 3.6 MMOL/L (3.6-5.0); SODIUM 126 MMOL/L (135-145); TOTAL PROTEIN 8.4 GM/DL (6.4-8.2)
--- NOTE | 2022-10-22 16:43 | Diagnostic Imaging Report ---
EXAMINATION: Chest, 2 views. HISTORY: Short of breath. COMPARISON: None available. FINDINGS: The lungs are clear without edema or pneumonia. No pleural effusion or pneumothorax. Heart size is normal. IMPRESSION: Clear lungs. Dictated by: Dictated on workstation # [id number]
[2022-10-24 12:59] LABS: AMYLASE 41 U/L (25-125); LIPASE 32 U/L (8-78)
== END ==
LOC: RAD 11:25
PROVIDERS: ATTEND Family Medicine
DX: R19.7 Diarrhea, unspecified (principal); R06.02 Shortness of breath; I10 Essential (primary) hypertension
CPT/HCPCS: 36415; 71046; 80053; 83880; 85027; 87015; 87045; 87046; 87324; 87328; 87329; 87449; 87899

== ENCOUNTER → 2022-10-23 | Outpatient (CLI) | payer MEDICARE ==
--- NOTE | 2022-10-23 12:40 | Diagnostic Imaging Report ---
EXAMINATION: CT ABDOMEN/PELVIS WO. TECHNIQUE: Unenhanced CT imaging of the abdomen and pelvis was performed. 2-D reformats are created and submitted for interpretation. Automatic exposure controls were utilized to optimize patient dose. INDICATION: Abdominal pain. COMPARISON: 10/14/2017. FINDINGS: Lower chest: Chronic faint reticular opacities in the periphery of the right lower lobe are stable. No acute abnormality in the lower chest. Peritoneum: No free intraperitoneal air or fluid. Liver and biliary system: Diffuse low-attenuation in the liver is now present, indicative of steatosis. No concerning focal hepatic lesion. Cholecystectomy. No biliary duct dilatation. Spleen and Pancreas: Spleen is normal. Unenhanced pancreas is grossly normal. Adrenals: Normal. tract: No renal or ureteral calculi. No obstructive uropathy. Multiple bilateral renal cysts have mildly increased in size but all appear simple in nature. No solid renal mass is appreciated. Urinary bladder is normally filled. Prostate is not enlarged. GI tract: Stomach is partially filled with air and fluid and there is no wall thickening. No bowel obstruction. No pericolonic inflammatory changes. Normal appendix. Vasculature and Lymph nodes: Normal caliber aorta has moderate calcification. No abdominal or pelvic lymphadenopathy. Musculoskeletal: No acute osseous abnormality. Severe osteoarthritis of the right hip. Prior left total hip arthroplasty. IMPRESSION: 1. No acute obstructive or inflammatory process. 2. No urinary tract stones. 3. Diffuse hepatic steatosis. Dictated by: Dictated on workstation # [id number]
== END ==
LOC: RAD 11:20
PROVIDERS: ATTEND Family Medicine
DX: K76.0 Fatty (change of) liver, not elsewhere classified (principal)
CPT/HCPCS: 74176

== ENCOUNTER → 2022-10-28 | Outpatient (CLI) | payer MEDICARE ==
[2022-10-28 09:31] LABS: CREATININE SERUM 1.36 MG/DL (0.60-1.30); POTASSIUM 4.4 MMOL/L (3.6-5.0)
== END ==
LOC: LAB 08:59
PROVIDERS: ATTEND Family Medicine
DX: E87.1 Hypo-osmolality and hyponatremia (principal)
CPT/HCPCS: 36415; 80048

== ENCOUNTER → 2022-11-01 | Outpatient (CLI) | payer MEDICARE ==
[~2022-11-01] MED LIST changes: +ALBU18HF2 INH; +ALPR0.5T7 PO; +CITA20TA9 PO; +CYCL10TA25 PO; -FLUT16SP22 NS; +FLUT16SP22 NSEACH; +HYDR12.56 PO; +METO50TA7 PO; +QUET100T33 PO; +TMSL.4C PO; +TRAM50TA3 PO
[2022-11-01 09:54] LABS: CALCIUM 9.6 MG/DL (8.5-10.1)
[2022-11-01 09:58] LABS: CREATININE SERUM 1.41 MG/DL (0.60-1.30)
== END ==
LOC: LAB 09:26
PROVIDERS: ATTEND Family Medicine
DX: E87.1 Hypo-osmolality and hyponatremia (principal)
CPT/HCPCS: 36415; 80048

== ENCOUNTER → 2022-11-04 | Outpatient (CLI) | payer MEDICARE ==
[2022-11-04 10:59] LABS: BASOPHILS # (AUTO) 0.1 10^3/uL (0.0-0.1); BASOPHILS % (AUTO) 1 % (0-10); EOSINOPHILS # (AUTO) 0.2 10^3/uL (0.0-0.3); EOSINOPHILS % (AUTO) 3 % (0-10); HEMATOCRIT 39 % (40-54); HEMOGLOBIN 13.9 g/dL (13.3-17.7); LYMPHOCYTES # (AUTO) 1.4 10^3/uL (1.0-4.0); LYMPHOCYTES % (AUTO) 16 % (12-44); MEAN CORPUSCULAR HEMOGLOBIN 29 pg (25-34); MEAN CORPUSCULAR HGB CONC 36 g/dL (32-36); MEAN CORPUSCULAR VOLUME 81 fL (80-99); MEAN PLATELET VOLUME 8.9 fL (9.0-12.2); MONOCYTES % (AUTO) 11 % (0-12); NEUTROPHILS # (AUTO) 6.3 10^3/uL (1.8-7.8); NEUTROPHILS % (AUTO) 70 % (42-75); PLATELET COUNT 241 10^3/uL (130-400)
[2022-11-04 11:22] LABS: ALBUMIN 4.3 GM/DL (3.2-4.5); BILIRUBIN,TOTAL 1.3 MG/DL (0.1-1.0); CALCIUM 9.6 MG/DL (8.5-10.1); CREATININE SERUM 1.37 MG/DL (0.60-1.30); POTASSIUM 3.9 MMOL/L (3.6-5.0); TOTAL PROTEIN 7.9 GM/DL (6.4-8.2)
== END ==
LOC: LAB 10:44
PROVIDERS: ATTEND Family Medicine
DX: R19.7 Diarrhea, unspecified (principal)
CPT/HCPCS: 36415; 80053; 85025

== ENCOUNTER 2022-11-05 10:37 | Inpatient (IN) | payer MEDICARE ==
[~2022-11-05] VITALS: Ht 177.8 cm; Wt 109.9 kg
[~2022-11-05 10:37] MED LIST changes: -ALBU18HF2 INH; -ALPR0.5T7 PO; -CITA20TA9 PO; -CYCL10TA25 PO; -HYDR12.56 PO; -METO50TA7 PO; -QUET100T33 PO; -TMSL.4C PO; -TRAM50TA3 PO
[2022-11-05] MEDS ORDERED: NS IV 500 ML 500 ML IV STA (10:47)
--- NOTE | 2022-11-05 10:50 | ED General ---
General Chief Complaint: Dizziness/Syncope Stated Complaint: LOW SODIUM | DIFFICULTY BREATHING Source of Information: Patient Exam Limitations: No Limitations History of Present Illness Date Seen by Provider: November 05, 2022 Time Seen by Provider: 10:41 Initial Comments 72-year-old male presents emergency department today for shortness of breath, low sodium. He was at his primary care doctor's office and was told his sodium was 1 24-1 26, he does not completely recall. Sent over here for further evaluation. He tells me that for the last 2 nights he has been significantly short of breath. He does have some shortness of breath somewhat during the day during this time as well but is significantly worsened at night. He had fevers a couple of days ago but has not had since. He has a cough productive of green sputum. Quit smoking 2 weeks ago. He denies any unilateral lower extremity pain or swelling. No history of CHF or cardiac disease. No history of COPD that is diagnosed but he does not really know if he wonders if he might have it. All other systems reviewed and negative except documented per HPI. Voice recognition software was used to help create this chart Allergies and Home Medications Allergies Coded Allergies: codeine (Verified Allergy, Unknown, 10/14/17) iodine (Verified Allergy, Unknown, 10/14/17) Patient Home Medication List Home Medication List Reviewed: Yes Albuterol Sulfate (Ventolin Hfa) 90 Mcg Hfa.aer.ad, 2 PUFF INH Q6H PRN for SHORTNESS OF BREATH, (Reported) Entered as Reported by: BRAXTON SHEEHAN on 11/05/221515 Last Action: Reviewed Alprazolam (Alprazolam) 0.5 Mg Tablet, 0.5 MG PO TID, (Reported) Entered as Reported by: BRAXTON SHEEHAN on 11/05/221515 Last Action: Reviewed Amlodipine Besylate (Amlodipine Besylate) 5 Mg Tablet, 5 MG PO 1700, (Reported) Entered as Reported by: YUNG JUARES on 10/14/17 0920 Last Action: Reviewed Citalopram Hydrobromide (Citalopram HBr) 20 Mg Tablet, 20 MG PO DAILY, (Reported) Entered as Reported by: BRAXTON SHEEHAN on 11/05/221515 Last Action: Reviewed Cyclobenzaprine HCl (Cyclobenzaprine HCl) 10 Mg Tablet, 10 MG PO BID PRN for MUSCLE SPASMS, (Reported) Entered as Reported by: BRAXTON SHEEHAN on 11/05/221515 Last Action: Reviewed Fluticasone Propionate (Fluticasone Propionate) 50 Mcg/Actuation [place].susp, 1 SPRAY NSEACH BID, (Reported) Entered as Reported by: YUNG JUARES on 10/14/17822 Last Action: Reviewed Hydrochlorothiazide (Hydrochlorothiazide) 12.5 Mg Tablet, 12.5 MG PO DAILY, (Reported) Entered as Reported by: BRAXTON SHEEHAN on 11/05/221515 Last Action: Reviewed Metoprolol Succinate (Metoprolol Succinate) 50 Mg Tab.er.24h, 50 MG PO DAILY, (Reported) Entered as Reported by: BRAXTON SHEEHAN on 11/05/221515 Last Action: Reviewed Pantoprazole Sodium (Pantoprazole Sodium) 40 Mg Tablet.dr, 40 MG PO DAILY, (Reported) Entered as Reported by: TOM CHRISTOPHER on 10/14/17617 Last Action: Reviewed Quetiapine Fumarate (Quetiapine Fumarate) 100 Mg Tablet, 100 MG PO HS, (Reported) Entered as Reported by: BRAXTON SHEEHAN on 11/05/221515 Last Action: Reviewed Tamsulosin HCl (Flomax) 0.4 Mg Cap, 0.4 MG PO 1800 AFTER DINNER, (Reported) Entered as Reported by: BRAXTON SHEEHAN on 11/05/221515 Last Action: Reviewed Tramadol HCl (Tramadol HCl) 50 Mg Tablet, 50 MG PO TID PRN for PAIN-MODERATE (5- 7), (Reported) Entered as Reported by: BRAXTON SHEEHAN on 11/05/221515 Last Action: Reviewed Discontinued Medications Alprazolam (Xanax) 1 Mg Tablet, 1 MG PO BID Discontinued Reason: No Longer Taking Prescribed by: LAZARO SETHI on 10/17/17 0745 Last Action: Discontinued Losartan Potassium (Losartan Potassium) 100 Mg Tablet, 100 MG PO DAILY, (Reported) Discontinued Reason: No Longer Taking Entered as Reported by: TOM CHRISTOPHER on 10/14/17618 Last Action: Discontinued Metoprolol Succinate (Metoprolol Succinate) 100 Mg Tab.er.24h, 100 MG PO DAILY, (Reported) Discontinued Reason: No Longer Taking Entered as Reported by: TOM CHRISTOPHER on 10/14/17618 Last Action: Discontinued Ofloxacin (Ofloxacin) 5 Ml Drops, 1 DROP OS UD, (Reported) Discontinued Reason: No Longer Taking Entered as Reported by: TOM CHRISTOPHER on 10/14/17618 Last Action: Discontinued Prednisolone Acetate (Pred Mild) 5 Ml Drops.susp, 1 DROP OS DAILY, (Reported) Discontinued Reason: No Longer Taking Entered as Reported by: YUNG JUARES on 10/14/17916 Last Action: Discontinued Tamsulosin HCl (Tamsulosin HCl) 0.4 Mg Cap.er.24h, 0.4 MG PO DAILY, (Reported) Discontinued Reason: No Longer Taking Entered as Reported by: TOM CHRISTOPHER on 10/14/17618 Last Action: Discontinued Review of Systems Review of Systems Constitutional: see HPI Past Wstvwfy-Jsrhza-Stthac Hx Patient Social History Tobacco Use?: Yes Use of E-Cig and/or Vaping dev: No Substance use?: No Alcohol Use?: No Immunizations Up To Date PED Vaccines UTD: Yes Seasonal Allergies Seasonal Allergies: No Past Medical History Surgeries: Yes Orthopedic Respiratory: Yes COPD Cardiac: Yes Hypertension Neurological: No Genitourinary: Yes Prostate Problems Gastrointestinal: No Musculoskeletal: No Endocrine: No HEENT: No Loss of Vision: Denies Hearing Impairment: Denies Cancer: No Psychosocial: Yes Sleep Difficulties, Anxiety, Depression Integumentary: Yes (SCABS ON ARMS AND ABD AND FACE) Blood Disorders: No Family Medical History No Pertinent Family Hx Physical Exam Vital Signs Vital Signs - First Documented 11/05/22 10:43 Temp 38.4 Pulse 120 Resp 22 B/P (MAP) 166/91 (116) Pulse Ox 93 O2 Delivery Room Air Capillary Refill : Height, Weight, BMI Height: 5'10.00" Weight: 217lbs. 4.0oz. 98.799259sh; 31.2 BMI Method:Stated General Appearance: No Apparent Distress, WD/WN HEENT: Normal ENT Inspection, Pharynx Normal Neck: Full Range of Motion, Supple Respiratory: Chest Non Tender, Other (Coarse rhonchi bilaterally) Cardiovascular: No Edema, No Murmur, Normal Peripheral Pulses, Tachycardia Gastrointestinal: Normal Bowel Sounds, Soft Extremity: Normal Capillary Refill, No Calf Tenderness, No Pedal Edema Neurologic/Psychiatric: Alert, Oriented x3, Normal Mood/Affect Skin: Normal Color, Warm/Dry Focused Exam Lactate Level 11/05/22 10:54: Lactic Acid Level 1.80 Lactic Acid Level Laboratory Tests Test 11/05/22 10:54 Lactic Acid Level 1.80 MMOL/L (0.50-2.00) Progress/Results/Core Measures Suspected Sepsis SIRS Temperature: Pulse: Respiratory Rate: Laboratory Tests 11/05/22 10:54: White Blood Count 11.8H Blood Pressure / Mean: 11/05/22 10:54: Lactic Acid Level 1.80 Laboratory Tests 11/05/22 10:54: Platelet Count 263, Total Bilirubin 1.9H Results/Orders Lab Results Laboratory Tests Test 11/05/22 10:54 11/05/22 11:06 Range/Units White Blood Count 11.8 H 4.3-11.0 10^3/uL Red Blood Count 4.97 4.30-5.52 10^6/uL Hemoglobin 14.6 13.3-17.7 g/dL Hematocrit 40 40-54 % Mean Corpuscular Volume 80 80-99 fL Mean Corpuscular Hemoglobin 29 25-34 pg Mean Corpuscular Hemoglobin Concent 37 H 32-36 g/dL Red Cell Distribution Width 14.5 10.0-14.5 % Platelet Count 263 130-400 10^3/uL Mean Platelet Volume 9.0 9.0-12.2 fL Immature Granulocyte % (Auto) 1 % Neutrophils (%) (Auto) 85 H 42-75 % Lymphocytes (%) (Auto) 5 L 12-44 % Monocytes (%) (Auto) 9 0-12 % Eosinophils (%) (Auto) 0 0-10 % Basophils (%) (Auto) 0 0-10 % Neutrophils # (Auto) 10.0 H 1.8-7.8 10^3/uL Lymphocytes # (Auto) 0.6 L 1.0-4.0 10^3/uL Monocytes # (Auto) 1.1 H 0.0-1.0 10^3/uL Eosinophils # (Auto) 0.0 0.0-0.3 10^3/uL Basophils # (Auto) 0.0 0.0-0.1 10^3/uL Immature Granulocyte # (Auto) 0.1 0.0-0.1 10^3/uL Neutrophils % (Manual) 78 % Lymphocytes % (Manual) 3 % Monocytes % (Manual) 10 % Eosinophils % (Manual) 0 % Basophils % (Manual) 0 % Band Neutrophils 9 % Blood Morphology Comment NORMAL Sodium Level 120 *L 135-145 MMOL/L Potassium Level 4.0 3.6-5.0 MMOL/L Chloride Level 85 L 98-107 MMOL/L Carbon Dioxide Level 22 21-32 MMOL/L Anion Gap 13 5-14 MMOL/L Blood Urea Nitrogen 17 7-18 MG/DL Creatinine 1.48 H 0.60-1.30 MG/DL Estimat Glomerular Filtration Rate 50 BUN/Creatinine Ratio 11 Glucose Level 141 H 70-105 MG/DL Lactic Acid Level 1.80 0.50-2.00 MMOL/L Uric Acid 5.9 2.6-7.2 MG/DL Calcium Level 10.2 H 8.5-10.1 MG/DL Corrected Calcium 9.8 8.5-10.1 MG/DL Total Bilirubin 1.9 H 0.1-1.0 MG/DL Aspartate Amino Transf (AST/SGOT) 32 5-34 U/L Alanine Aminotransferase (ALT/SGPT) 25 0-55 U/L Alkaline Phosphatase 47 40-136 U/L Troponin I < 0.028 <0.028 NG/ML Total Protein 8.3 H 6.4-8.2 GM/DL Albumin 4.5 3.2-4.5 GM/DL Vitamin B12 Level 512 251-8934 pg/mL Thyroid Stimulating Hormone (TSH) 1.32 0.35-4.94 UIU/ML Free Thyroxine 1.00 0.70-1.48 NG/DL Total Cortisol 47.2 H 3.7-19.4 ug/dL SARS-CoV-2 RNA (RT-PCR) Not Detected Not Detecte My Orders Orders - MELINDA RUSS DO Cbc With Automated Diff (11/05/22 10:47) Comprehensive Metabolic Panel (11/05/22 10:47) Blood Culture (11/05/22 10:47) Chest 1 View, Ap/Pa Only (11/05/22 10:47) Ed Iv/Invasive Line Start (11/05/22 10:47) Ekg Tracing (11/05/22 10:47) Vital Signs Adult Sepsis Patie Q15M (11/05/22 10:47) Lactic Acid Analyzer (11/05/22 10:47) Covid 19 Inhouse Test (11/05/22 10:47) Troponin I [place] (11/05/22 10:47) Ns Iv 500 Ml (Sodium Chloride 0.9%) (11/05/22 10:47) Manual Differential (11/05/22 10:54) Ceftriaxone Iv/Im (Rocephin Iv/Im) (11/05/22 11:45) Ed Admission (Communication) (11/05/22 11:44) Legionella Pneum Antigen Urine (11/05/22 11:44) Diphenhydramine Injection (Benadryl Inje (11/05/22 12:15) Methylprednisolone Sod Succ (Solu-Medrol (11/05/22 12:15) Ondansetron Injection (Zofran Injectio (11/05/22 12:15) Vital Signs/I&O 11/05/22 11/05/22 11/05/22 10:43 11:10 12:19 Temp 38.4 38.4 Pulse 120 107 Resp 22 22 B/P (MAP) 166/91 (116) 110/61 Pulse Ox 93 94 O2 Delivery Room Air Room Air Room Air Capillary Refill : ECG Comment Sinus tachycardia with a rate of 114 bpm. Normal intervals. Normal axis. No ST or T wave abnormalities. No ectopy. No STEMI. Critical Care Note Critical Care Total Time (minutes) 60 Departure Communication (Admissions) Patient is significantly hyponatremic, sodium 120. This is likely the source of his confusion, dizziness described by his son at the bedside over the last couple of days. He does have symptoms consistent with community-acquired pneumonia with a fever, leukocytosis and coarse breath sounds bilaterally, tachypnea tachycardia. His oxygen saturation is 90 to 94% on room air during observation. He is in no respiratory distress. With that I was started on broad-spectrum antibiotics. I did independently review the chest x-ray shows no acute cardiopulmonary abnormalities however I suspect that he likely has pneumonia as a progress to be visible on chest x-ray yet. He does not meet criteria for 30 cc/kg bolus as there is no evidence for severe sepsis at this time. I have ordered him 1 L of IV fluids as a bolus and started him on 100cc/h thereafter. Have ordered every 6 hours sodium checks in the bridging orders. He is admitted to Dr. Kelley who requests a CT scan of his chest. Initially the patient declines stating the iodine contrast makes him sick. Advised we would pretreat him and he again declined. Dr. Kelley came down and talk the patient into the CT scan, pending at the time of transfer to the floor. Differential considerations include community-acquired pneumonia, legionnaires disease, lung cancer, viral URI/bronchitis, hyponatremia, SIADH. Impression Primary Impression: Hyponatremia Additional Impressions: CAP (community acquired pneumonia) Qualified Codes: J18.9 - Pneumonia, unspecified organism Sepsis Qualified Codes: A41.9 - Sepsis, unspecified organism Disposition: ADMITTED INPATIENT Condition: Stable Departure-Patient Inst. Referrals: LAZARO SETHI DO (PCP/Family) Primary Care Physician MELINDA RUSS DO November 05, 2022 10:50
[2022-11-05 11:04] LABS: BASOPHILS % (AUTO) 0 % (0-10); EOSINOPHILS % (AUTO) 0 % (0-10); HEMATOCRIT 40 % (40-54); HEMOGLOBIN 14.6 g/dL (13.3-17.7); LYMPHOCYTES # (AUTO) 0.6 10^3/uL (1.0-4.0); LYMPHOCYTES % (AUTO) 5 % (12-44); MEAN CORPUSCULAR HEMOGLOBIN 29 pg (25-34); MEAN CORPUSCULAR HGB CONC 37 g/dL (32-36); MEAN CORPUSCULAR VOLUME 80 fL (80-99); MONOCYTES # (AUTO) 1.1 10^3/uL (0.0-1.0); MONOCYTES % (AUTO) 9 % (0-12); NEUTROPHILS % (AUTO) 85 % (42-75); PLATELET COUNT 263 10^3/uL (130-400); WHITE BLOOD COUNT 11.8 10^3/uL (4.3-11.0)
[2022-11-05 11:17] LABS: ALBUMIN 4.5 GM/DL (3.2-4.5); CHLORIDE 85 MMOL/L (98-107)
[2022-11-05 11:18] LABS: CALCIUM 10.2 MG/DL (8.5-10.1)
[2022-11-05 11:19] LABS: GLUCOSE 141 MG/DL (70-105); SODIUM 120 MMOL/L (135-145); TOTAL PROTEIN 8.3 GM/DL (6.4-8.2)
--- NOTE | 2022-11-05 11:19 | Diagnostic Imaging Report ---
INDICATION: Dyspnea and cough Frontal chest obtained at 1114 a.m. Heart is normal in size. Mediastinal silhouette is unremarkable. The lungs are clear. There is no pneumothorax or pleural fluid. IMPRESSION: Negative chest. Dictated by: Dictated on workstation # [id number]
[2022-11-05 11:20] LABS: CARBON DIOXIDE 22 MMOL/L (21-32)
[2022-11-05 11:21] LABS: BILIRUBIN,TOTAL 1.9 MG/DL (0.1-1.0)
[2022-11-05 11:23] LABS: ALKALINE PHOSPHATASE 47 U/L (40-136); CREATININE SERUM 1.48 MG/DL (0.60-1.30); GFR ESTIMATED 50
[2022-11-05 11:24] LABS: BUN/CREATININE RATIO 11
[2022-11-05 11:26] LABS: ALANINE AMINOTRANSFERASE 25 U/L (0-55)
[2022-11-05 11:37] LABS: BAND NEUTROPHILS 9 %; BASOPHILS % (MANUAL) 0 %; EOSINOPHILS % (MANUAL) 0 %; LYMPHOCYTES % (MANUAL) 3 %; MONOCYTES % (MANUAL) 10 %; NEUTROPHILS % (MANUAL) 78 %
[2022-11-05 11:38] LABS: RBC MORPH NORMAL
[2022-11-05] MEDS ORDERED: cefTRIAXone IV/IM 1,000 MG in NS (IVPB) 50 ML IV ONE (11:45)
[2022-11-05] MEDS ORDERED: diphenhydrAMINE 50 MG/ML INJ (BENADRYL) IVP ONE (12:15)
[2022-11-05] MEDS ORDERED: methylPREDNISolone 125 MG (Solu-MEDROL) VIAL IVP ONE (12:15)
[2022-11-05] MEDS ORDERED: ONDANSETRON 4 MG/2 ML (SDV) Z0FRAN IVP ONE (12:15)
--- NOTE | 2022-11-05 13:10 | Diagnostic Imaging Report ---
EXAMINATION: CT chest without contrast. TECHNIQUE: Multiple contiguous axial images were obtained through the chest without the use of intravenous contrast. All CT scans use one or more of the following dose optimizing techniques: automated exposure control, MA and/or KvP adjustment based on patient size and exam type or iterative reconstruction. HISTORY: Shortness of breath and cough COMPARISON: None available. FINDINGS: There are scattered tree-in-bud nodules in the right lower lobe and right upper lobe. There are mild peripheral reticular opacities. No consolidation. No edema. No pleural effusion. No pneumothorax. There is no axillary or supraclavicular lymphadenopathy. There is no mediastinal lymphadenopathy. Heart size is normal. There are severe coronary artery calcifications. No pericardial effusion. Aorta is normal in caliber. Limited views of the upper abdomen show hepatic steatosis. There are no suspicious osseus lesions. IMPRESSION: 1. Scattered tree-in-bud nodules in the right upper and lower lobe with mild peripheral reticular opacities. Findings in keeping with a endobronchial infection or aspiration. Dictated by: Dictated on workstation # [id number]
[2022-11-05] MEDS ORDERED: NS IV 1000 ML 1,000 ML IV SCH (13:15)
[2022-11-05] MEDS ORDERED: BISACODYL 10 MG SUPP (DULCOLAX) PR PRN (13:45)
[2022-11-05] MEDS ORDERED: MELATONIN 3 MG TABLET PO PRN (13:45)
[2022-11-05] MEDS ORDERED: MILK OF MAGNESIA 400 MG/5 ML 30 ML UDC PO PRN (13:45)
[2022-11-05] MEDS ORDERED: LACTULOSE SYRUP 10GM/15ML (ENULOSE) 30ML UDC PO PRN (13:45)
[2022-11-05] MEDS ORDERED: ONDANSETRON 4 MG (ZOFRAN) ORAL DISSOLVE TAB PO PRN (13:45)
[2022-11-05] MEDS ORDERED: ANTACID SUSP 30 ML UDC (MYLANTA) PO PRN (13:45)
[2022-11-05] MEDS ORDERED: ONDANSETRON 4 MG/2 ML (SDV) Z0FRAN IV PRN (13:45)
[2022-11-05] MEDS ORDERED: polyethylene glycoL POWDER 17 GM (MIRALAX) PACK PO PRN (13:45)
[2022-11-05] MEDS ORDERED: CALCIUM CARBONATE 500 MG (TUMS) TAB.CHEW PO PRN (13:45)
[2022-11-05] MEDS: NS IV 1000 ML 1,000 ML IV SCH ×3 (13:57→23:26)
[2022-11-05] MEDS: AZITHROMYCIN INJECTION 500 MG in NS (IVPB) 250 ML IV SCH (13:57)
--- NOTE | 2022-11-05 14:06 | Tele-ICU Consult ---
History of Present Illness History of Present Illness Date Seen by Provider: November 05, 2022 Time Seen by Provider: 14:01 Date of Admission 11/05/22 History of Present Illness Tele-ICU Physician , Critical care consultation Note ) Service provided via interactive audio and video [facility] system to a patient admitted to ICU bed in [facility]. Patient is seen today due to persistent need of ICU care Available chart/ vitals / labs / Images reviewed Video assessment done using teleICU camera, rest of exam as per RN 72 yr old male presented with history of cough and shortness of breath. Found to have low sodium of 120. review of data showed that he was evaluated for low sodium earlier this month. but no obvious coause found. has hx of smoking but hx of malignancy and alcohol abuse. no hemoptysis. CT chest showing tree in bud appearence in RUL and RLL sugestive of infection. His creatinin also elevated. Had low grade fever 2 days ago. Impression 1. Possible community acquired pneumonia. 2. Hyponatremia could be due to volume depletion however other metabolic causes can not be ruled out, rangel malignancy. 3. rossy on ckd 4. Tobacco abuse disorder. Plan. 1. 1.Hydrate Patient with normal saline and monitor Na closely not to correct krupa cly. 2. Iv antibioticks per primary care. 3. will check Free t4, TSH, urine lytes and osmolaity, serum cortisol. 4. DVT prophylaxis Coordination of care with primary care physician and bedside consultants.. I am remotely monitoring this patient from Tele icu station in [place]. I am unable to do the bedside exam, and history/physical and pertinent information is taken from other notes in the computer and bedside staff. Certain portions of this document may have been dictated utilizing voice recognition technology such as [employer]. Inherent to this technology, typographical and grammatical errors may exist. As much as I am diligent to identify and correct to these mistakes, some errors may remain in the document. Critical care time devoted to this patient today is approximately is 35 minutes . Allergies and Home Medications Allergies Coded Allergies: codeine (Verified Allergy, Unknown, 10/14/17) iodine (Verified Allergy, Unknown, 10/14/17) Home Medications Alprazolam 1 Mg Tablet, 1 MG PO BID Prescribed by: LAZARO SETHI on 10/17/17 3600 Amlodipine Besylate 5 Mg Tablet, 5 MG PO DAILY, (Reported) Fluticasone Propionate 16 Gm [place].susp, 1 SPRAY NS BID, (Reported) Losartan Potassium 100 Mg Tablet, 100 MG PO DAILY, (Reported) Metoprolol Succinate 100 Mg Tab.er.24h, 100 MG PO DAILY, (Reported) Ofloxacin 5 Ml Drops, 1 DROP OS UD, (Reported) 3 TIMES DAILY BEFORE SURGERY AND 4 TIMES DAILY AFTER SURGERY FOR 14 DAYS Pantoprazole Sodium 40 Mg Tablet.dr, 40 MG PO DAILY, (Reported) Prednisolone Acetate 5 Ml Drops.susp, 1 DROP OS DAILY, (Reported) START 3 DAYS PRIOR TO SURGERY AND USE 30 DAYS AFTER SURGERY 1% Tamsulosin HCl 0.4 Mg Cap.er.24h, 0.4 MG PO DAILY, (Reported) Past Medical/Social/Family Hx Patient Social History Tobacco Use?: Yes Tobacco type used: Cigarettes Use of E-Cig and/or Vaping dev: No Substance use?: No Alcohol Use?: No Current Status Communicates: Verbally Primary Language: Swedish Preferred Spoken Language: Swedish Implanted or Applied Medical D: None Review of Systems Constitutional: see HPI, malaise, other (cough) Focused Exam Lactate Level 11/05/22 10:54: Lactic Acid Level 1.80 Height, Weight, BMI Height: 5'10.00" Weight: 217lbs. 4.0oz. 98.131813hg; 32.99 BMI Method:Stated Lactic Acid Level Laboratory Tests Test 11/05/22 10:54 Lactic Acid Level 1.80 MMOL/L (0.50-2.00) Exam Exam Patient acknowledged, consented, and participated in this virtual visit which was conducted using real time audio/video Vital Signs Date Time Temp Pulse Resp B/P (MAP) Pulse Ox O2 Delivery O2 Flow Rate FiO2 11/05/22 13:26 102 11/05/22 13:15 102 18 121/81 (94) 98 Room Air 11/05/22 13:00 105 18 151/89 (109) 98 Room Air 11/05/22 12:19 38.4 107 22 110/61 94 Room Air 11/05/22 11:10 Room Air 11/05/22 10:43 38.4 120 22 166/91 (116) 93 Room Air Height & Weight Height: 5'10.00" Weight: 217lbs. 4.0oz. 98.532289ha; 32.99 BMI Method:Stated General Appearance: No Apparent Distress, WD/WN HEENT: Normal ENT Inspection, Pharynx Normal Neck: Full Range of Motion, Supple Respiratory: Chest Non Tender, Other (Coarse rhonchi bilaterally) Cardiovascular: No Edema, No Murmur, Normal Peripheral Pulses, Tachycardia Extremity: Normal Capillary Refill, No Calf Tenderness, No Pedal Edema Neurologic/Psychiatric: Alert, Oriented x3, Normal Mood/Affect Skin: Normal Color, Warm/Dry Results Lab Laboratory Tests 11/05/22 10:54 Assessment/Plan Assessment/Plan as above Critical Care: Critically Ill Patient Time spent with patient (mins): 35 ZENOBIA BRICENO MD November 05, 2022 14:06
[2022-11-05 14:18] LABS: URIC ACID 5.9 MG/DL (2.6-7.2)
[2022-11-05] MEDS: guaiFENesin/DM (ROBITUSSIN DM) 10 ML UDC PO PRN (14:25)
[2022-11-05] MEDS: ENOXAPARIN 40 MG/0.4 ML (LOVENOX) SYR SC SCH (14:25)
[2022-11-05 14:47] VITALS: BP 121/81
[2022-11-05] MEDS ORDERED: RT-ALBUTEROL/IPRATROPIUM 3 ML (DUONEB) VIAL INH PRN ×2 (15:15→18:15)
[2022-11-05] MEDS ORDERED: TMSL.4C PO (15:16)
[2022-11-05] MEDS ORDERED: ALPR0.5T7 PO (15:16)
[2022-11-05] MEDS ORDERED: HYDR12.56 PO (15:16)
[2022-11-05] MEDS ORDERED: METO50TA7 PO (15:16)
[2022-11-05] MEDS ORDERED: CYCL10TA25 PO (15:16)
[2022-11-05] MEDS ORDERED: QUET100T33 PO (15:16)
[2022-11-05] MEDS ORDERED: ALBU18HF2 INH (15:16)
[2022-11-05] MEDS ORDERED: TRAM50TA3 PO (15:16)
[2022-11-05] MEDS ORDERED: CITA20TA9 PO (15:16)
[2022-11-05 17:16] LABS: CALCIUM 9.1 MG/DL (8.5-10.1); CREATININE SERUM 1.35 MG/DL (0.60-1.30); POTASSIUM 3.8 MMOL/L (3.6-5.0)
--- NOTE | 2022-11-05 18:06 | History & Physical-Hospitalist ---
History of Present Illness HPI/Chief Complaint Aden Hilliard is a 72 year old male with PMH HTN, COPD, GERD, BPH, anxiety, tobacco abuse, who presented with shortness of breath. He says this has been worsening over a couple weeks. He also reports cough productive of yellow-green sputum. He has been having fevers. He has been dealing with low sodium levels for the past few weeks as well. He reports balance issues and headache. He has had some confusion as well. He denies dysuria. He does have some trouble initiating his stream. He takes Flomax for BPH. Source: patient Exam Limitations: no limitations Date Seen 11/05/22 Time Seen by a Provider: 12:30 Attending Physician Aden Servin DO PCP Admitting Physician: Vero Blank MD Attending Physician: Vero Blank MD Referring Physician Date of Admission November 05, 2022 at 12:35 Home Medications & Allergies Home Medications Reviewed patient Home Medication Reconciliation performed by pharmacy medication reconciliations dental service technician and/or nursing. Patients Allergies have been reviewed. Allergies Allergies Coded Allergies codeine (Verified Allergy, Unknown, 10/14/17) iodine (Verified Allergy, Unknown, 10/14/17) Past Hegubks-Ratwdm-Ehdxli Hx Patient Social History Tobacco Use?: Yes Tobacco type used: Cigarettes Smoking Status: Former Smoker Smokeless Tobacco Frequency: Former User Use of E-Cig and/or Vaping dev: No Substance use?: No Alcohol Use?: No Pt feels they are or have been: No Immunizations Up To Date PED Vaccines UTD: Yes Seasonal Allergies Seasonal Allergies: No Current Status Advance Directives: No Communicates: Verbally Primary Language: Cuban Preferred Spoken Language: Cuban Sensory deficits: Vision impairment Implanted or Applied Medical D: None Past Medical History Surgeries: Orthopedic COPD Hypertension Prostate Problems Loss of Vision: Denies Hearing Impairment: Denies Sleep Difficulties, Anxiety, Depression Blood Disorders: No Family Medical History No Pertinent Family Hx Review of Systems Constitutional: dizziness, weakness EENTM: no symptoms reported Respiratory: cough, phlegm, short of breath Cardiovascular: no symptoms reported Gastrointestinal: no symptoms reported Physical Exam Physical Exam Vital Signs Vital Signs - First Documented 11/05/22 10:43 Temp 38.4 Pulse 120 Resp 22 B/P (MAP) 166/91 (116) Pulse Ox 93 O2 Delivery Room Air Capillary Refill : Height, Weight, BMI Height: 5'10.00" Weight: 217lbs. 4.0oz. 98.633762uz; 32.99 BMI Method:Stated General Appearance: No Apparent Distress, Obese HEENT: PERRL/EOMI, Pharynx Normal Neck: Normal Inspection, Supple Respiratory: No Respiratory Distress, Crackles Cardiovascular: Regular Rate, Rhythm, No Murmur Gastrointestinal: Normal Bowel Sounds, Non Tender, Soft Extremity: Normal Inspection, No Pedal Edema Neurologic/Psychiatric: Alert, Oriented x3, Normal Mood/Affect Skin: Normal Color, Warm/Dry Results Results/Procedures Labs Laboratory Tests 11/05/22 10:54 11/05/22 16:50 Patient resulted labs reviewed. Imaging: Reviewed Imaging Films, Reviewed Imaging Report Assessment/Plan Admission Diagnosis Sepsis due to pneumonia Admission Status: Inpatient Order (span 2 midnights) Reason for Inpatient Admission: IV antibiotics Hyponatremia Assessment and Plan Sepsis due to pneumonia Fever and tachycardia on arrival Chest CT with right sided infiltrates IV fluids Cefepime and Azithromycin Not requiring supplemental oxygen at this time UA ordered Blood cultures pending Hyponatremia Dehydration CKD 3a Possibly due to hypovolemia vs SIADH Urine studies pending HCTZ held, continue Citalopram for now IV fluids Monitor sodium closely TeleICU consulted HTN Hold HCTZ and Amlodipine Continue Metoprolol BPH Flomax Anxiety Depression Continue Citalopram, Quetiapine, and Xanax DVT prophylaxis: Lovenox Critical Care Critically Ill Patient Diagnosis/Problems Diagnosis/Problems (1) Sepsis Status: Acute Qualifiers: Sepsis type: sepsis due to unspecified organism Sepsis acute organ dysfunction status: unspecified Qualified Codes: A41.9 - Sepsis, unspecified organism (2) CAP (community acquired pneumonia) Status: Acute Qualifiers: Laterality: unspecified laterality Qualified Codes: J18.9 - Pneumonia, unspecified organism (3) Hyponatremia Status: Acute (4) Dehydration Status: Acute (5) Stage 3a chronic kidney disease (CKD) Status: Chronic (6) HTN (hypertension) Status: Chronic (7) Anxiety and depression Status: Chronic (8) Obesity Status: Chronic (9) Tobacco abuse Status: Chronic VERO BLANK MD November 05, 2022 18:06
[2022-11-05] MEDS ORDERED: morphine INJ 10 MG/ML 1ML (SYR OR VIAL) IVP PRN (18:15)
[2022-11-05] MEDS ORDERED: BENZONATATE 100 MG (TESSALON) CAPSULE PO ONE (19:50)
[2022-11-05] MEDS: ACETAMINOPHEN 325 MG TABLET PO PRN (19:57)
[2022-11-05] MEDS: QUEtiapine 100 MG (SEROquel) TAB IMMEDIATE RELEASE PO SCH (19:58)
[2022-11-05] MEDS: SENNOSIDES 8.6 MG (SENOKOT) TAB PO SCH (21:21)
[2022-11-05] MEDS: DOCUSATE SODIUM 100 MG (COLACE) CAP PO SCH (21:21)
[2022-11-05] MEDS ORDERED: NS IV 500 ML 500 ML IV PRN (22:00)
[2022-11-06 00:06] LABS: POTASSIUM 3.3 MMOL/L (3.6-5.0)
[2022-11-06 00:07] LABS: CALCIUM 8.9 MG/DL (8.5-10.1)
[2022-11-06 00:11] LABS: CREATININE SERUM 1.2 MG/DL (0.60-1.30)
[2022-11-06] MEDS: guaiFENesin/DM (ROBITUSSIN DM) 10 ML UDC PO PRN ×2 (02:27→08:31)
[2022-11-06 05:06] LABS: BASOPHILS % (AUTO) 0 % (0-10); EOSINOPHILS # (AUTO) 0.1 10^3/uL (0.0-0.3); EOSINOPHILS % (AUTO) 1 % (0-10); HEMATOCRIT 33 % (40-54); HEMOGLOBIN 11.7 g/dL (13.3-17.7); LYMPHOCYTES # (AUTO) 0.6 10^3/uL (1.0-4.0); LYMPHOCYTES % (AUTO) 8 % (12-44); MEAN CORPUSCULAR HEMOGLOBIN 29 pg (25-34); MEAN CORPUSCULAR HGB CONC 36 g/dL (32-36); MEAN CORPUSCULAR VOLUME 81 fL (80-99); MEAN PLATELET VOLUME 9.1 fL (9.0-12.2); MONOCYTES # (AUTO) 0.8 10^3/uL (0.0-1.0); MONOCYTES % (AUTO) 10 % (0-12); NEUTROPHILS # (AUTO) 6.5 10^3/uL (1.8-7.8); NEUTROPHILS % (AUTO) 81 % (42-75); PLATELET COUNT 193 10^3/uL (130-400); WHITE BLOOD COUNT 8.1 10^3/uL (4.3-11.0)
[2022-11-06 05:27] LABS: ALBUMIN 3.6 GM/DL (3.2-4.5); CALCIUM 8.8 MG/DL (8.5-10.1); CREATININE SERUM 1.03 MG/DL (0.60-1.30); POTASSIUM 3.5 MMOL/L (3.6-5.0); TOTAL PROTEIN 6.6 GM/DL (6.4-8.2)
[2022-11-06] MEDS: POTASSIUM CL 10MEQ/50ML IVPB 50 ML IV SCH (05:33)
[2022-11-06] MEDS: KCL 20 MEQ TAB (K-DUR) PO SCH (05:33)
[2022-11-06] MEDS: MAGNESIUM 1 GM/100 ML IVPB 100 ML IV SCH ×7 (05:52→13:41)
[2022-11-06] MEDS ORDERED: MAGNESIUM 1 GM/100 ML IVPB 600 ML IV ONE (05:54)
[2022-11-06] MEDS: ACETAMINOPHEN 325 MG TABLET PO PRN (05:59)
[2022-11-06] MEDS: NS IV 1000 ML 1,000 ML IV SCH ×2 (05:59→18:25)
[2022-11-06] MEDS ORDERED: KCL 20 MEQ TAB (K-DUR) PO ONE (07:00)
[2022-11-06] MEDS: SENNOSIDES 8.6 MG (SENOKOT) TAB PO SCH ×2 (08:00→19:28)
[2022-11-06] MEDS: DOCUSATE SODIUM 100 MG (COLACE) CAP PO SCH ×2 (08:00→19:28)
[2022-11-06] MEDS: AZITHROMYCIN INJECTION 500 MG in NS (IVPB) 250 ML IV SCH (08:03)
--- NOTE | 2022-11-06 08:16 | Tele-ICU Progress Note ---
Subjective Date Seen by a Provider: November 06, 2022 Time Seen by a Provider: 14:57 Subjective/Events-last exam Tele-ICU Physician , progress Note ) Service provided via interactive audio and video telecommunications E-CARE system to a patient admitted to ICU bed in [facility]. Patient is seen today due to persistent need of ICU care Available chart/ vitals / labs / Images reviewed Video assessment done using teleICU camera, rest of exam as per RN 72 yr old male presented with history of cough and shortness of breath. Found to have low sodium of 120. review of data showed that he was evaluated for low sodium earlier this month. but no obvious coause found. has hx of smoking but hx of malignancy and alcohol abuse. no hemoptysis. CT chest showing tree in bud appearence in RUL and RLL sugestive of infection. His creatinin also elevated. Had low grade fever 2 days ago. 11/06/22 Today patient coughing less, and afebrile. wbc trending down. NA improved to 127. unlikely siadh as uric acid is normal. tsh ,free t4, and cortisol levels are normal Impression 1. Possible community acquired pneumonia. 2. Hyponatremia could be due to volume depletion, HCTZ however other metabolic causes can not be ruled out, rnagel malignancy. now improving 3. rossy on ckd 4. Tobacco abuse disorder. Plan. 1. 1.Hydrate Patient with normal saline and monitor Na closely not to correct quicly. 2. Iv antibioticks per primary care. 3. urine lytes pending. 4. DVT prophylaxis Coordination of care with primary care physician and bedside consultants.. I am remotely monitoring this patient from Tele icu station in [place]. I am unable to do the bedside exam, and history/physical and pertinent information is taken from other notes in the computer and bedside staff. Certain portions of this document may have been dictated utilizing voice recognition technology such as [employer]. Inherent to this technology, typographical and grammatical errors may exist. As much as I am diligent to identify and correct to these mistakes, some errors may remain in the document. Critical care time devoted to this patient today is approximately is 25 minutes Sepsis Event Evaluation Height, Weight, BMI Height: 5'10.00" Weight: 217lbs. 4.0oz. [id number]; 34.60 BMI Method:Stated Focused Exam Lactate Level 11/05/22 10:54: Lactic Acid Level 1.80 Exam Exam Patient acknowledged, consented, and participated in this virtual visit which was conducted using real time audio/video Vital Signs Date Time Temp Pulse Resp B/P (MAP) Pulse Ox O2 Delivery O2 Flow Rate FiO2 11/06/22 07:52 36.2 11/06/22 07:21 98 11/06/22 06:00 85 22 148/85 (106) 97 Room Air 11/06/22 05:00 84 22 162/76 (95) 96 Room Air 11/06/22 04:22 95 Nasal Cannula 2.00 11/06/22 04:00 92 26 127/111 (117) 95 Room Air 11/06/22 04:00 36.1 11/06/22 03:00 90 24 148/95 (115) 95 Room Air 11/06/22 02:00 80 21 129/71 (75) 94 Room Air 11/06/22 01:00 86 11/06/22 01:00 86 15 114/57 (86) 96 Room Air 11/06/22 00:00 76 24 140/76 (105) 96 Room Air 11/06/22 00:00 36.1 11/05/22 23:59 95 Nasal Cannula 2.00 11/05/22 23:00 80 24 148/79 (111) 98 Room Air 11/05/22 22:00 87 26 139/107 (114) 97 Room Air 11/05/22 21:00 86 28 145/91 (109) 91 Room Air 11/05/22 20:06 92 7 131/103 (110) 92 Room Air 11/05/22 20:00 90 176/105 (128) 92 Room Air 11/05/22 20:00 92 Room Air 11/05/22 19:58 36.7 11/05/22 19:00 90 11/05/22 19:00 88 59 103/69 (77) 92 Room Air 11/05/22 18:00 91 33 147/85 (105) 93 Room Air 11/05/22 17:00 97 19 131/55 (80) 93 Room Air 11/05/22 16:00 93 Room Air 11/05/22 16:00 96 24 137/97 (110) 93 Room Air 11/05/22 15:00 94 15 124/97 (106) 92 Room Air 11/05/22 14:47 38.4 102 95 11/05/22 14:15 95 Room Air 11/05/22 14:00 97 14 105/80 (88) 94 Room Air 11/05/22 13:45 98 32 112/100 (104) 92 Room Air 11/05/22 13:30 98 32 132/83 (99) 92 Room Air 11/05/22 13:26 102 11/05/22 13:15 102 18 121/81 (94) 98 Room Air 11/05/22 13:00 105 18 151/89 (109) 98 Room Air 11/05/22 12:19 38.4 107 22 110/61 94 Room Air 11/05/22 11:10 Room Air 11/05/22 10:43 38.4 120 22 166/91 (116) 93 Room Air I & O 11/06/22 07:00 Intake Total 3470 ml Output Total 1825 ml Balance 1645 ml Height & Weight Height: 5'10.00" Weight: 217lbs. 4.0oz. 98.733582wi; 34.60 BMI Method:Stated General Appearance: No Apparent Distress, WD/WN HEENT: Normal ENT Inspection, Pharynx Normal Neck: Full Range of Motion, Supple Respiratory: Chest Non Tender, Other (Coarse rhonchi bilaterally) Cardiovascular: No Edema, No Murmur, Normal Peripheral Pulses, Tachycardia Extremity: Normal Capillary Refill, No Calf Tenderness, No Pedal Edema Neurologic/Psychiatric: Alert, Oriented x3, Normal Mood/Affect Skin: Normal Color, Warm/Dry Results Lab Laboratory Tests 11/05/22 10:54 11/05/22 16:50 11/05/22 23:47 11/06/22 04:51 Assessment/Plan Assessment/Plan as above Critical Care: Critically Ill Patient Time spent with patient (mins): 25 ZENOBIA BRICENO MD November 06, 2022 08:16
[2022-11-06] MEDS ORDERED: BENZONATATE 100 MG (TESSALON) CAPSULE PO PRN ×2 (08:30→19:00)
[2022-11-06] MEDS ORDERED: meTOproloL SUCCINATE 50 MG (TOPROL XL) TAB PO SCH ×2 (09:00→16:45)
[2022-11-06] MEDS: cefTRIAXone IV/IM 1,000 MG in NS (IVPB) 50 ML IV SCH (11:57)
[2022-11-06 13:07] LABS: POTASSIUM 3.9 MMOL/L (3.6-5.0)
[2022-11-06 13:08] LABS: CALCIUM 8.7 MG/DL (8.5-10.1)
[2022-11-06 13:13] LABS: CREATININE SERUM 1.02 MG/DL (0.60-1.30)
[2022-11-06] MEDS: ENOXAPARIN 40 MG/0.4 ML (LOVENOX) SYR SC SCH (16:05)
--- NOTE | 2022-11-06 16:21 | Physical Therapy Evaluation ---
PT Evaluation-General Medical Diagnosis Admission Date November 05, 2022 at 12:35 Medical Diagnosis: Shortness of breath, ESCOBAR, balance issues Onset Date: November 05, 2022 Therapy Diagnosis Therapy Diagnosis: Gait deficit, strength deficit Height/Weight Height (Feet): 5 Height (Inches): 10.00 Weight (Pounds): 217 Weight (Ounces): 4.0 Precautions Precautions/Isolations: Fall Prevention, Standard Precautions Weight Bear Status Right Lower Extremity: Right Weight Bearing/Tolerated Left Lower Extremity: Left Weight Bearing/Tolerated Referral Physician: Dr. Kelley Reason for Referral: Evaluation/Treatment Medical History Pertinent Medical History: COPD, HTN Reviewed History: Yes Social History Home: Single Level Current Living Status: Alone Entry Into Home: Stairs With Railing PT Steps Into Home: 2 Prior Prior Level of Function SCALE: Activities may be completed with or without assistive devices. 6-Dfmuswskjj-ssjpfvo completes the activity by him/herself with no assistance from a helper. 5-Set-up or Clean-up Assistance-helper sets up or cleans up; patient completes activity. [place] assists only prior to or following the activity. 4-Supervision or Touching Assistance-helper provides verbal cues and/or touching/steadying and/or contact guard assistance as patient completes activity. Assistance may be provided throughout the activity or intermittently. 3-Partial/Moderate Assistance-helper does LESS THAN HALF the effort. [place] lifts, holds or supports trunk or limbs, but provides less than half the effort. 2-Substantial/Maximal Assistance-helper does MORE THAN HALF the effort. [place] l ifts or holds trunk or limbs and provides more than half the effort. 0-Ldvsgrmgl-fjxtgr does ALL the effort. Patient does none of the effort to complete the activity. Or, the assistance of 2 or more helpers is required for the patient to complete the activity. If activity was not attempted, code reason: 7-Patient Refused. 9-Not Applicable-not attempted and the patient did not perform the activity before the current illness, exacerbation or injury. 10-Not Attempted due to Environmental Limitations-(lack of equipment, weather restraints, etc.). 88-Not Attempted due to Medical Conditions or Safety Concerns. Bed Mobility: 6 Transfers (B,C,W/C): 6 Gait: 6 Stairs: 6 Indoor Mobility (Ambulation): Independent Stairs: Independent Prior Devices Use: None PT Evaluation-Current Subjective Patient lying supine in bed upon PT arrival, agreeable to treatment. Rates pain at 0/10 currently. Agrees to participate in evaluation but refuses gait at this time. Objective Patient Orientation: Person, Place, Time, Situation Attachments: Oxygen, IV ROM/Strength ROM Lower Extremities WFLs BLEs all planes Strength Lower Extremities 4/5 BLEs all planes Sensory Vision: Functional Hearing: Functional Sensation Right Lower Extremit: Intact Sensation Left Lower Extremity: Intact Transfers Roll Left to Right (QC): 4 Sit to Lying (QC): 4 Lying to Sitting/Side of Bed(Q: 4 Sit to Stand (QC): 4 Gait Does the Patient Walk?: No and Walking Goal IS indicated Mode of Locomotion: Walk Anticipated Mode of Locomotion: Walk Balance Sitting Static: Normal Sitting Dynamic: Good Standing Static: Fair Standing Dynamic: Fair Assessment/Needs Patient tolerated treatment well. He performs all bed mobility and transfers with SBA. Patient refuses ambulation but is able to stand for ~ 5minutes. Patient in bed post treatment with all needs met, nursing notified, call light in hand. Rehab Potential: Good PT Mcfp Goals Intelligence Analyst Goals PT Intelligence Analyst Goals Time Frame: Dec 13, 2022 Roll Left & Right (QC): 6 Sit to Lying (QC): 6 Lying-Sitting on Side/Bed(QC): 6 Sit to Stand (QC): 6 Chair/Boi-fv-Yzhka Xfer(QC): 6 Toilet Transfer (QC): 6 Does the Patient Walk: Yes Walk 10 feet (QC): 6 Walk 50ft with 2 Turns (QC): 6 Walk 150 ft (QC): 6 1 Step (curb) (QC): 4 4 Steps (QC): 4 PT Plan Problem List Problem List: Activity Tolerance, Functional Strength, Safety, Balance, Gait, Transfer, Bed Mobility, ROM Treatment/Plan Treatment Plan: Continue Plan of Care Treatment Plan: Bed Mobility, Education, Functional Activity Francis, Functional Strength, Group Therapy, Gait, Safety, Therapeutic Exercise, Transfers Treatment Duration: Dec 13, 2022 Frequency: 6 times per week Estimated Hrs Per Day: .25 hour per day Patient and/or Family Agrees t: Yes Safety Risks/Education Patient Education: Gait Training, Transfer Techniques Teaching Recipient: Patient Teaching Methods: Demonstration, Discussion Response to Teaching: Verbalize Understanding, Return Demonstration Time Time In: 1351 Time Out: 1405 DATE: November 06, 2022 Total Billed Treatment Time: 14 Total Billed Treatment Visit, ART ABRAHAM PT November 06, 2022 16:21
[2022-11-06] MEDS ORDERED: hydrALAZINE (APESOLINE) 20 MG/ML VIAL IV PRN (16:45)
[2022-11-06] MEDS ORDERED: SODIUM CHLORIDE 1 GM TABLET PO ONE (16:45)
--- NOTE | 2022-11-06 16:46 | Progress Note - Hospitalist ---
Subjective HPI/CC On Admission Date Seen by Provider: November 06, 2022 Time Seen by Provider: 11:00 Aden Hilliard is a 72 year old male with PMH HTN, COPD, GERD, BPH, anxiety, tobacco abuse, who presented with shortness of breath. He says this has been worsening over a couple weeks. He also reports cough productive of yellow-green sputum. He has been having fevers. He has been dealing with low sodium levels for the past few weeks as well. He reports balance issues and headache. He has had some confusion as well. He denies dysuria. He does have some trouble initiating his stream. He takes Flomax for BPH. Subjective/Events-last exam He is feeling better. He is not short of breath. He is still feeling weak. Focused Exam Lactate Level 11/05/22 10:54: Lactic Acid Level 1.80 Objective Exam Vital Signs Vital Signs Date Time Temp Pulse Resp B/P (MAP) Pulse Ox O2 Delivery O2 Flow Rate FiO2 11/06/22 16:00 89 16 185/112 (136) 93 Room Air 11/06/22 11:49 36.2 11/06/22 08:00 2.00 Capillary Refill : General Appearance: No Apparent Distress, Obese Respiratory: No Respiratory Distress, Decreased Breath Sounds Cardiovascular: Regular Rate, Rhythm, No Murmur Gastrointestinal: Normal Bowel Sounds, Soft Extremity: Normal Inspection, No Pedal Edema Neurologic/Psychiatric: Alert, Normal Mood/Affect Skin: Normal Color, Warm/Dry Results/Procedures Lab Laboratory Tests 11/05/22 16:50 11/05/22 23:47 11/06/22 04:51 11/06/22 12:43 Patient resulted labs reviewed. Imaging: Reviewed Imaging Films, Reviewed Imaging Report Assessment/Plan Assessment and Plan Assess & Plan/Chief Complaint Sepsis due to pneumonia Continue antibiotics Not requiring supplemental oxygen at this time Hyponatremia Dehydration MARGARET on CKD 3a Improving Add salt tabs HTN Hold HCTZ Increase Amlodipine Increase Metoprolol Hydralazine as needed BPH Flomax Anxiety Depression Continue Citalopram, Quetiapine, and Xanax DVT prophylaxis: Lovenox Diagnosis/Problems Diagnosis/Problems (1) Sepsis Status: Acute Qualifiers: Sepsis type: sepsis due to unspecified organism Sepsis acute organ dysfunction status: unspecified Qualified Codes: A41.9 - Sepsis, unspecified organism (2) CAP (community acquired pneumonia) Status: Acute Qualifiers: Laterality: unspecified laterality Qualified Codes: J18.9 - Pneumonia, unspecified organism (3) Hyponatremia Status: Acute (4) Dehydration Status: Acute (5) Stage 3a chronic kidney disease (CKD) Status: Chronic (6) HTN (hypertension) Status: Chronic (7) Anxiety and depression Status: Chronic (8) Obesity Status: Chronic (9) Tobacco abuse Status: Chronic ISIDORO BLANK MD November 06, 2022 16:46
[2022-11-06] MEDS ORDERED: ALPRAZolam 1 MG (XANAX) TAB PO PRN (17:00)
[2022-11-06] MEDS: TAMSULOSIN 0.4 MG (FLOMAX) CAP PO SCH (17:19)
[2022-11-06] MEDS: amLODIPine 5 MG (NORVASC) TAB PO SCH (18:25)
[2022-11-06] MEDS: ALPRAZolam 1 MG (XANAX) TAB PO SCH ×2 (18:25→20:35)
[2022-11-06] MEDS: SODIUM CHLORIDE 1 GM TABLET PO SCH (20:34)
[2022-11-06] MEDS: FLUTICASONE NASAL SPRAY (FLONASE) 16 GM BTL NS SCH (20:35)
[2022-11-06] MEDS: QUEtiapine 100 MG (SEROquel) TAB IMMEDIATE RELEASE PO SCH (20:35)
[2022-11-06 20:37] VITALS: BP 151/84
[2022-11-07] MEDS: ACETAMINOPHEN 325 MG TABLET PO PRN (05:13)
[2022-11-07] MEDS: KCL 20 MEQ TAB (K-DUR) PO SCH (06:00)
[2022-11-07] MEDS: MAGNESIUM 1 GM/100 ML IVPB 100 ML IV SCH (06:00)
[2022-11-07] MEDS: POTASSIUM CL 10MEQ/50ML IVPB 50 ML IV SCH (06:00)
[2022-11-07 06:57] LABS: BASOPHILS % (AUTO) 1 % (0-10); EOSINOPHILS # (AUTO) 0.2 10^3/uL (0.0-0.3); EOSINOPHILS % (AUTO) 3 % (0-10); HEMATOCRIT 32 % (40-54); HEMOGLOBIN 11.4 g/dL (13.3-17.7); LYMPHOCYTES % (AUTO) 17 % (12-44); MEAN CORPUSCULAR HEMOGLOBIN 29 pg (25-34); MEAN CORPUSCULAR HGB CONC 35 g/dL (32-36); MEAN CORPUSCULAR VOLUME 82 fL (80-99); MEAN PLATELET VOLUME 9.2 fL (9.0-12.2); MONOCYTES # (AUTO) 0.7 10^3/uL (0.0-1.0); MONOCYTES % (AUTO) 11 % (0-12); NEUTROPHILS % (AUTO) 68 % (42-75); PLATELET COUNT 214 10^3/uL (130-400); WHITE BLOOD COUNT 5.9 10^3/uL (4.3-11.0)
[2022-11-07 07:11] LABS: ALBUMIN 3.5 GM/DL (3.2-4.5); POTASSIUM 3.4 MMOL/L (3.6-5.0)
[2022-11-07 07:12] LABS: BILIRUBIN,TOTAL 0.5 MG/DL (0.1-1.0); CALCIUM 8.6 MG/DL (8.5-10.1); CREATININE SERUM 0.95 MG/DL (0.60-1.30); TOTAL PROTEIN 6.4 GM/DL (6.4-8.2)
[2022-11-07 07:16] VITALS: BP 143/83
[2022-11-07] MEDS: NS IV 1000 ML 1,000 ML IV SCH ×2 (07:32→16:39)
[2022-11-07] MEDS: PANTOPRAZOLE 40 MG (PROTONIX) TAB PO SCH (08:56)
[2022-11-07] MEDS: FLUTICASONE NASAL SPRAY (FLONASE) 16 GM BTL NS SCH ×2 (08:56→21:58)
[2022-11-07] MEDS: DOCUSATE SODIUM 100 MG (COLACE) CAP PO SCH ×2 (08:56→21:58)
[2022-11-07] MEDS: meTOproloL SUCCINATE 50 MG (TOPROL XL) TAB PO SCH (08:56)
[2022-11-07] MEDS: SODIUM CHLORIDE 1 GM TABLET PO SCH ×2 (08:56→21:59)
[2022-11-07] MEDS: ALPRAZolam 1 MG (XANAX) TAB PO SCH ×3 (08:57→21:59)
[2022-11-07] MEDS: AZITHROMYCIN 250 MG TAB (ZITHROMAX) PO SCH (08:57)
[2022-11-07] MEDS: SENNOSIDES 8.6 MG (SENOKOT) TAB PO SCH ×2 (08:57→21:58)
--- NOTE | 2022-11-07 10:22 | Physical Therapy Daily Note ---
PT Daily Note-Current Subjective Patient agrees to PT. Pain Section J - Health Conditions 1. Rarely or not at all 2. Occasionally 3. Frequently 4. Almost constantly 8. Unable to answer Pain Effect on Sleep: 1 Pain Interference with Therapy: 1 Pain Interference w/Day-to-Day: 1 Mental Status Patient Orientation: Person, Time, Situation Attachments: IV Transfers SCALE: Activities may be completed with or without assistive devices. 3-Rzvqxtjglv-guatqgv completes the activity by him/herself with no assistance from a helper. 5-Set-up or Clean-up Assistance-helper sets up or cleans up; patient completes activity. [place] assists only prior to or following the activity. 4-Supervision or Touching Assistance-helper provides verbal cues and/or touching/steadying and/or contact guard assistance as patient completes activity. Assistance may be provided throughout the activity or intermittently. 3-Partial/Moderate Assistance-helper does LESS THAN HALF the effort. [place] lifts, holds or supports trunk or limbs, but provides less than half the effort. 2-Substantial/Maximal Assistance-helper does MORE THAN HALF the effort. [place] lifts or holds trunk or limbs and provides more than half the effort. 6-Xfvaygvbo-vcfkua does ALL the effort. Patient does none of the effort to complete the activity. Or, the assistance of 2 or more helpers is required for the patient to complete the activity. If activity was not attempted, code reason: 7-Patient Refused. 9-Not Applicable-not attempted and the patient did not perform the activity before the current illness, exacerbation or injury. 10-Not Attempted due to Environmental Limitations-(lack of equipment, weather restraints, etc.). 88-Not Attempted due to Medical Conditions or Safety Concerns. Lying to Sitting/Side of Bed(Q: 6 Sit to Stand (QC): 4 Weight Bearing Right Lower Extremity: Right Weight Bearing/Tolerated Left Lower Extremity: Left Weight Bearing/Tolerated Gait Training Distance: 300' Walk 10 feet (QC): 4 Walk 50 ft with 2 Turns(QC): 4 Walk 150 ft (QC): 4 Gait Assistive Device: FWW SBA for safety/functional gait sequence with FWW use Assessment Patient tolerated treatment and is sitting EOB with family present. Patient improved on this date. PT to increase activity as tolerated by patient. PT Veneer Production Machine Operator Goals Veneer Production Machine Operator Goals PT Skilled Nursing Goals Time Frame: Dec 13, 2022 Roll Left & Right (QC): 6 Sit to Lying (QC): 6 Lying-Sitting on Side/Bed(QC): 6 Sit to Stand (QC): 6 Chair/Xec-zt-Uaoyg Xfer(QC): 6 Toilet Transfer (QC): 6 Does the Patient Walk: Yes Walk 10 feet (QC): 6 Walk 50ft with 2 Turns (QC): 6 Walk 150 ft (QC): 6 1 Step (curb) (QC): 4 4 Steps (QC): 4 PT Plan Treatment/Plan Treatment Plan: Continue Plan of Care Treatment Plan: Bed Mobility, Education, Functional Activity Francis, Functional Strength, Group Therapy, Gait, Safety, Therapeutic Exercise, Transfers Treatment Duration: Dec 13, 2022 Frequency: 6 times per week Estimated Hrs Per Day: .25 hour per day Patient and/or Family Agrees t: Yes Time Time In: 920 Time Out: 930 DATE: November 07, 2022 Total Billed Treatment Time: 10 Total Billed Treatment 1 visit FA 10 min DHRUV WARREN PT November 07, 2022 10:22
[2022-11-07] MEDS: cefTRIAXone IV/IM 1,000 MG in NS (IVPB) 50 ML IV SCH (11:17)
[2022-11-07 11:29] VITALS: BP 137/80
[2022-11-07] MEDS ORDERED: CEFD300C3 PO (12:19)
[2022-11-07] MEDS ORDERED: MTP100TCR PO (12:19)
[2022-11-07] MEDS ORDERED: AMLO-251 PO (12:19)
[2022-11-07] MEDS ORDERED: NF-NACL1GT PO (12:20)
--- NOTE | 2022-11-07 14:56 | Progress Note - Hospitalist ---
Subjective HPI/CC On Admission Date Seen by Provider: November 07, 2022 Time Seen by Provider: 12:15 Aden Hilliard is a 72 year old male with PMH HTN, COPD, GERD, BPH, anxiety, tobacco abuse, who presented with shortness of breath. He says this has been worsening over a couple weeks. He also reports cough productive of yellow-green sputum. He has been having fevers. He has been dealing with low sodium levels for the past few weeks as well. He reports balance issues and headache. He has had some confusion as well. He denies dysuria. He does have some trouble initiating his stream. He takes Flomax for BPH. Subjective/Events-last exam He is feeling better. He is not short of breath. He does not want to go home today. He says he still has a cough. Focused Exam Lactate Level 11/05/22 10:54: Lactic Acid Level 1.80 Objective Exam Vital Signs Vital Signs Date Time Temp Pulse Resp B/P (MAP) Pulse Ox O2 Delivery O2 Flow Rate FiO2 11/07/22 11:29 36.9 85 18 137/80 (99) 94 Room Air 11/07/22 08:18 0.00 Capillary Refill : General Appearance: No Apparent Distress, Obese Respiratory: Lungs Clear, No Respiratory Distress Cardiovascular: Regular Rate, Rhythm, No Murmur Gastrointestinal: Normal Bowel Sounds, Soft Extremity: Normal Inspection, No Pedal Edema Neurologic/Psychiatric: Alert, Normal Mood/Affect Skin: Normal Color, Warm/Dry Results/Procedures Lab Laboratory Tests 11/07/22 05:38 Patient resulted labs reviewed. Imaging: Reviewed Imaging Films, Reviewed Imaging Report Assessment/Plan Assessment and Plan Assess & Plan/Chief Complaint Sepsis due to pneumonia Sepsis resolved Continue antibiotics Not requiring supplemental oxygen Hyponatremia Dehydration MARGARET on CKD 3a MARGARET resolved Sodium improved, chronic Continue salt tabs HTN Improved with dose changes Hold HCTZ Continue Amlodipine and Metoprolol Hydralazine as needed Anemia Mild, likely dilutional due to fluid replacement Monitor outpatient, further workup as needed BPH Anxiety Depression Continue home meds Weakness PT/OT Walked 300 feet with therapy today, no concerns DVT prophylaxis: Lovenox Dispo: medically stable for discharge, appeal pending Diagnosis/Problems Diagnosis/Problems (1) Sepsis Status: Acute Qualifiers: Sepsis type: sepsis due to unspecified organism Sepsis acute organ dysfunction status: unspecified Qualified Codes: A41.9 - Sepsis, unspecified organism (2) CAP (community acquired pneumonia) Status: Acute Qualifiers: Laterality: unspecified laterality Qualified Codes: J18.9 - Pneumonia, unspecified organism (3) Hyponatremia Status: Acute (4) Dehydration Status: Acute (5) Stage 3a chronic kidney disease (CKD) Status: Chronic (6) HTN (hypertension) Status: Chronic (7) Anxiety and depression Status: Chronic (8) Obesity Status: Chronic (9) Tobacco abuse Status: Chronic ISIDORO BLANK MD November 07, 2022 14:56
[2022-11-07] MEDS ORDERED: guaiFENesin/DM (ROBITUSSIN DM) 10 ML UDC PO PRN (15:00)
[2022-11-07] MEDS ORDERED: LOPERAMIDE 2 MG (IMODIUM) TABLET PO PRN (15:00)
[2022-11-07] MEDS: ENOXAPARIN 40 MG/0.4 ML (LOVENOX) SYR SC SCH (15:57)
[2022-11-07 15:59] VITALS: BP 174/98
[2022-11-07] MEDS: amLODIPine 5 MG (NORVASC) TAB PO SCH (16:33)
[2022-11-07] MEDS: TAMSULOSIN 0.4 MG (FLOMAX) CAP PO SCH (16:34)
[2022-11-07 18:14] VITALS: BP 159/88
[2022-11-07 20:00] VITALS: BP 148/86
[2022-11-07] MEDS: QUEtiapine 100 MG (SEROquel) TAB IMMEDIATE RELEASE PO SCH (21:58)
[2022-11-08] VITALS: BP 144/86
[2022-11-08] MEDS: ACETAMINOPHEN 325 MG TABLET PO PRN (02:10)
[2022-11-08 04:45] VITALS: BP 123/85
[2022-11-08 05:52] LABS: BASOPHILS # (AUTO) 0.1 10^3/uL (0.0-0.1); BASOPHILS % (AUTO) 1 % (0-10); EOSINOPHILS # (AUTO) 0.3 10^3/uL (0.0-0.3); EOSINOPHILS % (AUTO) 5 % (0-10); HEMATOCRIT 37 % (40-54); HEMOGLOBIN 12.8 g/dL (13.3-17.7); LYMPHOCYTES # (AUTO) 1.4 10^3/uL (1.0-4.0); LYMPHOCYTES % (AUTO) 21 % (12-44); MEAN CORPUSCULAR HEMOGLOBIN 29 pg (25-34); MEAN CORPUSCULAR HGB CONC 35 g/dL (32-36); MEAN CORPUSCULAR VOLUME 82 fL (80-99); MEAN PLATELET VOLUME 9.1 fL (9.0-12.2); MONOCYTES # (AUTO) 0.8 10^3/uL (0.0-1.0); MONOCYTES % (AUTO) 12 % (0-12); NEUTROPHILS # (AUTO) 3.9 10^3/uL (1.8-7.8); NEUTROPHILS % (AUTO) 60 % (42-75); PLATELET COUNT 272 10^3/uL (130-400); WHITE BLOOD COUNT 6.5 10^3/uL (4.3-11.0)
[2022-11-08 05:53] LABS: ALBUMIN 3.7 GM/DL (3.2-4.5); POTASSIUM 3.4 MMOL/L (3.6-5.0)
[2022-11-08 05:54] LABS: CALCIUM 9.1 MG/DL (8.5-10.1)
[2022-11-08 05:56] LABS: TOTAL PROTEIN 6.9 GM/DL (6.4-8.2)
[2022-11-08 05:57] LABS: BILIRUBIN,TOTAL 0.5 MG/DL (0.1-1.0)
[2022-11-08 05:59] LABS: CREATININE SERUM 0.96 MG/DL (0.60-1.30)
[2022-11-08] MEDS: POTASSIUM CL 10MEQ/50ML IVPB 50 ML IV SCH (06:05)
[2022-11-08] MEDS: MAGNESIUM 1 GM/100 ML IVPB 100 ML IV SCH (06:05)
[2022-11-08] MEDS: KCL 20 MEQ TAB (K-DUR) PO SCH (07:10)
[2022-11-08 07:21] VITALS: BP 123/85
[2022-11-08 07:30] VITALS: BP_DIAS 151
[2022-11-08] MEDS ORDERED: RT-ALBUTEROL/IPRATROPIUM 3 ML (DUONEB) VIAL INH PRN (07:30)
--- NOTE | 2022-11-08 08:28 | Physical Therapy Progress Note ---
Therapy Progress Note Patient refused PT stating, "I'm eating breakfast and going home." PT to dismiss patient from services at this time. 1 ref DHRUV WARREN PT November 08, 2022 08:28
[2022-11-08] MEDS ORDERED: CEFDINIR 300 MG (OMNICEF) CAP PO SCH (09:00)
[2022-11-08] MEDS: FLUTICASONE NASAL SPRAY (FLONASE) 16 GM BTL NS SCH (09:04)
[2022-11-08] MEDS: meTOproloL SUCCINATE 50 MG (TOPROL XL) TAB PO SCH (09:05)
[2022-11-08] MEDS: SENNOSIDES 8.6 MG (SENOKOT) TAB PO SCH (09:05)
[2022-11-08] MEDS: ALPRAZolam 1 MG (XANAX) TAB PO SCH (09:05)
[2022-11-08] MEDS: AZITHROMYCIN 250 MG TAB (ZITHROMAX) PO SCH (09:05)
[2022-11-08] MEDS: DOCUSATE SODIUM 100 MG (COLACE) CAP PO SCH (09:05)
[2022-11-08] MEDS: PANTOPRAZOLE 40 MG (PROTONIX) TAB PO SCH (09:05)
[2022-11-08] MEDS: SODIUM CHLORIDE 1 GM TABLET PO SCH (09:05)
[2022-11-08] MEDS ORDERED: RT-ALBUTEROL/IPRATROPIUM 3 ML (DUONEB) VIAL INH SCH (11:00)
[2022-11-08] MEDS ORDERED: RT-ALBUINH INH (11:13)
[2022-11-08 12:00] VITALS: BP 144/87
--- NOTE | 2022-11-08 20:54 | Discharge Summary ---
Discharge Summary Hospital Course Problems/Dx: (1) Sepsis Status: Acute Qualifiers: Qualified Codes: A41.9 - Sepsis, unspecified organism (2) CAP (community acquired pneumonia) Status: Acute Qualifiers: Qualified Codes: J18.9 - Pneumonia, unspecified organism (3) Hyponatremia Status: Acute (4) Dehydration Status: Acute (5) Stage 3a chronic kidney disease (CKD) Status: Chronic (6) HTN (hypertension) Status: Chronic (7) Anxiety and depression Status: Chronic (8) Obesity Status: Chronic (9) Tobacco abuse Status: Chronic Hospital Course Date of Admission: November 05, 2022 at 12:35 Admission Diagnosis : Sepsis due to pneumonia, hyponatremia Family Physician/Provider: Lazaro Sethi DO Date of Discharge: 11/08/22 Discharge Diagnosis: Sepsis due to pneumonia, hyponatremia Hospital Course: Lazaro Hilliard is a 72 year old male who was admitted with sepsis due to pneumonia. He was treated with IV fluids and antibiotics. He did not require any supplemental oxygen. His symptoms improved. He also had acute on chronic hyponatremia. This responded well to normal saline. He was also started on salt tabs. He had issues with elevated BP and his BP meds were increased, both amlodipine and metoprolol. He had mild anemia. I recommended endoscopic evaluation but he was reluctant. He has never had an endoscopy. He reported weakness, but performed well with physical therapy. He was discharged home in stable condition. He should follow up with Dr. Sethi in about a week. Labs and Pending Lab Test: Laboratory Tests 11/08/22 05:13: White Blood Count 6.5, Red Blood Count 4.44, Hemoglobin 12.8L, Hematocrit 37L, Mean Corpuscular Volume 82, Mean Corpuscular Hemoglobin 29, Mean Corpuscular Hemoglobin Concent 35, Red Cell Distribution Width 14.3, Platelet Count 272, Mean Platelet Volume 9.1, Immature Granulocyte % (Auto) 1, Neutrophils (%) (Auto) 60, Lymphocytes (%) (Auto) 21, Monocytes (%) (Auto) 12, Eosinophils (%) (Auto) 5, Basophils (%) (Auto) 1, Neutrophils # (Auto) 3.9, Lymphocytes # (Auto) 1.4, Monocytes # (Auto) 0.8, Eosinophils # (Auto) 0.3, Basophils # (Auto) 0.1, Immature Granulocyte # (Auto) 0.1, Sodium Level 129L, Potassium Level 3.4L, Chloride Level 95L, Carbon Dioxide Level 25, Anion Gap 9, Blood Urea Nitrogen 6L , Creatinine 0.96, Estimat Glomerular Filtration Rate 84, BUN/Creatinine Ratio 6, Glucose Level 103, Calcium Level 9.1, Corrected Calcium 9.3, Total Bilirubin 0.5, Aspartate Amino Transf (AST/SGOT) 34, Alanine Aminotransferase (ALT/SGPT) 32, Alkaline Phosphatase 41, Total Protein 6.9, Albumin 3.7 Microbiology 11/05/22 MRSA Screen - Final, Complete No growth 11/05/22 Blood Culture - Preliminary, Resulted No growth Home Meds Active Ventolin Hfa (Albuterol Sulfate) 1 Puff Puff 2 Puff INH Q4H 30 Days 1 PUFF = 90 MCG Sodium Chloride 1,000 Mg Tablet.lesley 1 Gm PO BID 30 Days Cefdinir 300 Mg Capsule 300 Mg PO BID 5 Days Metoprolol Succinate 100 Mg Tab.er.24h 100 Mg PO DAILY 30 Days Amlodipine Besylate 10 Mg Tablet 10 Mg PO DAILY 30 Days Reported Citalopram HBr (Citalopram Hydrobromide) 20 Mg Tablet 20 Mg PO DAILY LAST FILLED 08-21-2022 #30 DAY SUPPLY Alprazolam 0.5 Mg Tablet 0.5 Mg PO TID Flomax (Tamsulosin HCl) 0.4 Mg Cap 0.4 Mg PO 1800 AFTER DINNER Quetiapine Fumarate 100 Mg Tablet 100 Mg PO HS Hydrochlorothiazide 12.5 Mg Tablet 12.5 Mg PO DAILY Ventolin Hfa (Albuterol Sulfate) 90 Mcg Hfa.aer.ad 2 Puff INH Q6H PRN Tramadol HCl 50 Mg Tablet 50 Mg PO TID PRN Cyclobenzaprine HCl 10 Mg Tablet 10 Mg PO BID PRN Fluticasone Propionate 50 Mcg/Actuation [place].susp 1 [place] NSEACH BID Pantoprazole Sodium 40 Mg Tablet.dr 40 Mg PO DAILY Assessment/Pt Instructions See instructions Discharge Planning: >30 minutes discharge planning Discharge Instructions Discharge Diet: No Restrictions Activity as Tolerated: Yes Discharge Physical Examination Vital Signs Vital Signs Date Time Temp Pulse Resp B/P (MAP) Pulse Ox O2 Delivery O2 Flow Rate FiO2 11/08/22 12:00 36.2 81 18 144/87 (106) 98 Room Air 11/07/22 19:30 0.00 General Appearance: No Apparent Distress, Chronically ill, Obese Respiratory: No Respiratory Distress, Decreased Breath Sounds Cardiovascular: Regular Rate, Rhythm, No Murmur Gastrointestinal: Normal Bowel Sounds, Non Tender, Soft Extremity: Normal Inspection, No Pedal Edema Skin: Normal Color, Warm/Dry Neurologic/Psychiatric: Alert, Normal Mood/Affect Allergies: Coded Allergies: codeine (Verified Allergy, Unknown, 10/14/17) iodine (Verified Allergy, Unknown, 10/14/17) Copy Copies To 1: LAZARO SETHI DO Discharge Summary Date of Admission November 05, 2022 at 12:35 Date of Discharge November 08, 2022 at 12:15 Discharge Date: November 08, 2022 Discharge Time: 12:15 Admission Diagnosis Sepsis due to pneumonia Discharge Diagnosis Sepsis due to pneumonia Hyponatremia Dehydration MARGARET on CKD 3a HTN Anemia BPH Anxiety Depression Weakness (1) Sepsis Status: Acute Qualifiers: Qualified Codes: A41.9 - Sepsis, unspecified organism (2) CAP (community acquired pneumonia) Status: Acute Qualifiers: Qualified Codes: J18.9 - Pneumonia, unspecified organism (3) Hyponatremia Status: Acute (4) Dehydration Status: Acute (5) Stage 3a chronic kidney disease (CKD) Status: Chronic (6) HTN (hypertension) Status: Chronic (7) Anxiety and depression Status: Chronic (8) Obesity Status: Chronic (9) Tobacco abuse Status: Chronic ISIDORO BLANK MD November 08, 2022 20:54
== END 2022-11-08 12:15 | disposition home or self-care (01) | DRG 871 ==
LOC: EDUNIT# 10:37 → ER 10:40 → ICU 12:35 → 4TH 11-06 17:51
PROVIDERS: ADMIT Internal Medicine; ATTEND Internal Medicine
DX: A41.9 Sepsis, unspecified organism (principal); J18.9 Pneumonia, unspecified organism; E87.1 Hypo-osmolality and hyponatremia; N17.9 Acute kidney failure, unspecified; J44.0 Chronic obstructive pulmonary disease with (acute) lower respiratory infection; E86.0 Dehydration; N18.31 Chronic kidney disease, stage 3a; I12.9 Hypertensive chronic kidney disease with stage 1 through stage 4 chronic kidney disease, or unspecified chronic kidney disease; F41.9 Anxiety disorder, unspecified; F32.A Depression, unspecified; E66.9 Obesity, unspecified; D63.1 Anemia in chronic kidney disease; N40.0 Benign prostatic hyperplasia without lower urinary tract symptoms; K21.9 Gastro-esophageal reflux disease without esophagitis; Z87.891 Personal history of nicotine dependence; Z20.822 Contact with and (suspected) exposure to COVID-19; Z68.34 Body mass index [BMI] 34.0-34.9, adult
CPT/HCPCS: 36415; 71045; 71250; 80048; 80053; 82533; 82570; 82607; 83605; 83735; 83935; 84133; 84300; 84439; 84443; 84484; 84550; 85007; 85025; 85027; 87040; 87081; 87449; 87636; 93005; 93306; 94640; 94760

== ENCOUNTER 2023-01-26 07:32 | Emergency (ER) | payer MEDICARE ==
[~2023-01-26] VITALS: Ht 178 cm; Wt 113.0 kg
[~2023-01-26 07:32] MED LIST changes: +ALBU18HF2 INH; +ALPR0.5T7 PO; +AMLO-251 PO; +CEFD300C3 PO; +CITA20TA9 PO; +CYCL10TA25 PO; +HYDR12.56 PO; -LOSA100T57 PO; +LOSA100T58 PO; +METO50TA7 PO; +NF-NACL1GT PO; +QUET100T33 PO; +RT-ALBUINH INH; +TMSL.4C PO; +TRAM50TA3 PO
--- NOTE | 2023-01-26 07:49 | ED Chest Pain ---
General Chief Complaint: Respiratory Problems Stated Complaint: SOA Nursing Triage Note: PT STATES SOB FOR A WHILE, QUIT SMOKING FRIDAY Source: patient Exam Limitations: no limitations History of Present Illness Date Seen by Provider: Jan 26, 2023 Time Seen by Provider: 07:41 Initial Comments Here with at least a month of increasing shortness of breath and body aches. States he gets short of breath with any activity. Does have history of hypertension and did smoke until 3 days ago when he quit. He also quit drinking alcohol recently. States he did not drink very much in the first place but thought it would be best to quit. Unsure of fevers. States he was admitted for pneumonia several months back. He has been using his inhaler which helps some. Does have central anterior chest pain that he describes as pain which is intermittent and mild. He does take medicine for fluid retention. He was unsure of his history but thinks he had a cholecystectomy and does have allergies to iodine. 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 NTG SL EMBOSSING UNIT OPERATOR: No Associated Symptoms: No back pain, No diaphoresis, No fever/chills, No nausea/vomiting; shortness of breath, weakness Allergies and Home Medications Allergies Coded Allergies: codeine (Verified Allergy, Unknown, 10/14/17) iodine (Verified Allergy, Unknown, 10/14/17) Patient Home Medication List Home Medication List Reviewed: Yes Albuterol Sulfate (Ventolin Hfa) 90 Mcg Hfa.aer.ad, 2 PUFF INH Q6H PRN for SHORTNESS OF BREATH, (Reported) Entered as Reported by: BRAXTON SHEEHAN on 11/05/22 1516 Albuterol Sulfate (Ventolin Hfa) 1 Puff Puff, 2 PUFF INH Q4H Prescribed by: ISIDORO BLANK on 11/08/22 1113 Alprazolam (Alprazolam) 0.5 Mg Tablet, 0.5 MG PO TID, (Reported) Entered as Reported by: BRAXTON SHEEHAN on 11/05/22 1516 Amlodipine Besylate (Amlodipine Besylate) 10 Mg Tablet, 10 MG PO DAILY Prescribed by: ISIDORO BLANK on 11/07/22 1219 Cefdinir (Cefdinir) 300 Mg Capsule, 300 MG PO BID Prescribed by: ISIDORO BLANK on 11/07/22 1219 Citalopram Hydrobromide (Citalopram HBr) 20 Mg Tablet, 20 MG PO DAILY, (Reported) Entered as Reported by: BRAXTON SHEEHAN on 11/05/22 151 Cyclobenzaprine HCl (Cyclobenzaprine HCl) 10 Mg Tablet, 10 MG PO BID PRN for MUSCLE SPASMS, (Reported) Entered as Reported by: BRAXTON SHEEHAN on 11/05/22 151 Fluticasone Propionate (Fluticasone Propionate) 50 Mcg/Actuation [place].susp, 1 SPRAY NSEACH BID, (Reported) Entered as Reported by: YUNG JUARES on 10/14/17 0823 Hydrochlorothiazide (Hydrochlorothiazide) 12.5 Mg Tablet, 12.5 MG PO DAILY, ( Reported) Entered as Reported by: BRAXTON SHEEHAN on 11/05/22 151 Metoprolol Succinate (Metoprolol Succinate) 100 Mg Tab.er.24h, 100 MG PO DAILY Prescribed by: ISIDORO BLANK on 11/07/22 121 Pantoprazole Sodium (Pantoprazole Sodium) 40 Mg Tablet.dr, 40 MG PO DAILY, (Reported) Entered as Reported by: TOM CHRISTOPEHR on 10/14/17 0618 Quetiapine Fumarate (Quetiapine Fumarate) 100 Mg Tablet, 100 MG PO HS, (Report ed) Entered as Reported by: BRAXTON SHEEHAN on 11/05/22 151 Sodium Chloride (Sodium Chloride) 1,000 Mg Tablet.lesley, 1 GM PO BID Prescribed by: ISIDORO BLANK on 11/07/22 1220 Tamsulosin HCl (Flomax) 0.4 Mg Cap, 0.4 MG PO 1800 AFTER DINNER, (Reported) Entered as Reported by: BRAXTON SHEEHAN on 11/05/22 151 Tramadol HCl (Tramadol HCl) 50 Mg Tablet, 50 MG PO TID PRN for PAIN-MODERATE (5- 7), (Reported) Entered as Reported by: BRAXTON SHEEHAN on 11/05/22 151 Review of Systems Review of Systems Constitutional: see HPI; No chills, No fever EENTM: No Nose Congestion, No Throat Pain Respiratory: Denies Cough; Shortness of Air, SOA With Exertion Cardiovascular: Chest Pain; Denies Edema Gastrointestinal: Denies Nausea, Denies Vomiting Genitourinary: No Symptoms Reported Musculoskeletal: muscle pain; No muscle stiffness Skin: no symptoms reported Psychiatric/Neurological: No Symptoms Reported Past Mtzyfpo-[id number]-[id number] Hx Patient Social History Tobacco Use?: Yes Tobacco type used: Cigarettes Smoking Status: Current Everyday Smoker Substance use?: No Additional substance use comme: HX OF OPIATES Alcohol Use?: No Immunizations Up To Date PED Vaccines UTD: Yes Second COVID19 Vaccination Aditya: YES Seasonal Allergies Seasonal Allergies: No Past Medical History Surgery/Hospitalization HX: COPD, HTN, ANXIETY, GERD, LOW SODIUM Surgeries: Yes Orthopedic Respiratory: Yes COPD Cardiac: Yes Hypertension Neurological: No Genitourinary: Yes Prostate Problems Gastrointestinal: No Musculoskeletal: No Endocrine: No HEENT: No Loss of Vision: Denies Hearing Impairment: Denies Cancer: No Psychosocial: Yes Sleep Difficulties, Anxiety, Depression Integumentary: Yes (SCABS ON ARMS AND ABD AND FACE) Blood Disorders: No Family Medical History Reviewed Nursing Family Hx No Pertinent Family Hx Physical Exam Vital Signs Vital Signs - First Documented 01/26/23 07:37 Temp 36.5 Pulse 94 Resp 22 O2 Delivery Room Air Capillary Refill : Height, Weight, BMI Height: 5'10.00" Weight: 217lbs. 4.0oz. 98.191224xs; 35.00 BMI Method:Stated General Appearance: No Apparent Distress, WD/WN HEENT: PERRL/EOMI, Pharynx Normal Neck: Non Tender, Supple Respiratory: No Crackles; Wheezing (Better with rest but noted with any activity throughout), Other (Tachypneic with activity) Cardiovascular: Regular Rate, Rhythm, No Murmur Gastrointestinal: Non Tender, Soft Extremity: Normal Range of Motion, Non Tender Neurologic/Psychiatric: Alert, Oriented x3 Skin: Normal Color, Warm/Dry Progress/Results/Core Measures Results/Orders Lab Results Laboratory Tests Test 01/26/23 07:40 Range/Units White Blood Count 6.2 4.3-11.0 10^3/uL Red Blood Count 5.11 4.30-5.52 10^6/uL Hemoglobin 14.7 13.3-17.7 g/dL Hematocrit 44 40-54 % Mean Corpuscular Volume 87 80-99 fL Mean Corpuscular Hemoglobin 29 25-34 pg Mean Corpuscular Hemoglobin Concent 33 32-36 g/dL Red Cell Distribution Width 13.6 10.0-14.5 % Platelet Count 219 130-400 10^3/uL Mean Platelet Volume 9.5 9.0-12.2 fL Immature Granulocyte % (Auto) 1 % Neutrophils (%) (Auto) 65 42-75 % Lymphocytes (%) (Auto) 22 12-44 % Monocytes (%) (Auto) 8 0-12 % Eosinophils (%) (Auto) 4 0-10 % Basophils (%) (Auto) 1 0-10 % Neutrophils # (Auto) 4.0 1.8-7.8 10^3/uL Lymphocytes # (Auto) 1.4 1.0-4.0 10^3/uL Monocytes # (Auto) 0.5 0.0-1.0 10^3/uL Eosinophils # (Auto) 0.2 0.0-0.3 10^3/uL Basophils # (Auto) 0.0 0.0-0.1 10^3/uL Immature Granulocyte # (Auto) 0.0 0.0-0.1 10^3/uL Sodium Level 135 135-145 MMOL/L Potassium Level 3.7 3.6-5.0 MMOL/L Chloride Level 96 L 98-107 MMOL/L Carbon Dioxide Level 25 21-32 MMOL/L Anion Gap 14 5-14 MMOL/L Blood Urea Nitrogen 15 7-18 MG/DL Creatinine 1.37 H 0.60-1.30 MG/DL Estimat Glomerular Filtration Rate 55 BUN/Creatinine Ratio 11 Glucose Level 146 H 70-105 MG/DL Calcium Level 9.4 8.5-10.1 MG/DL Corrected Calcium 9.1 8.5-10.1 MG/DL Magnesium Level 1.8 1.6-2.4 MG/DL Total Bilirubin 0.8 0.1-1.0 MG/DL Aspartate Amino Transf (AST/SGOT) 23 5-34 U/L Alanine Aminotransferase (ALT/SGPT) 20 0-55 U/L Alkaline Phosphatase 57 40-136 U/L Troponin I < 0.028 <0.028 NG/ML C-Reactive Protein High Sensitivity 0.28 0.00-0.50 MG/DL B-Type Natriuretic Peptide 48.2 <100.0 PG/ML Total Protein 8.1 6.4-8.2 GM/DL Albumin 4.4 3.2-4.5 GM/DL My Orders Orders - SALOMON BLANCHARD MD Ed Iv/Invasive Line Start (01/26/23 07:47) Ekg Tracing (01/26/23 07:47) Monitor-Rhythm Ecg Trace Only (01/26/23 07:47) Chest 1 View, Ap/Pa Only (01/26/23 07:47) Bnp [place] (01/26/23 07:47) Cbc With Automated Diff (01/26/23 07:47) Comprehensive Metabolic Panel (01/26/23 07:47) Hs C Reactive Protein (01/26/23 07:47) Magnesium (01/26/23 07:47) Troponin I [place] (01/26/23 07:47) Ipratropium/Albuterol Inh Soln (Ipratrop (01/26/23 08:00) Svn Small Volume Nebulizer (01/26/23 07:47) Ketorolac Injection (Ketorolac Injection (01/26/23 09:26) Ketorolac Injection (Ketorolac Injection (01/26/23 09:27) Medications Given in ED Current Medications Medications Dose Ordered Sig/Garrett Route Start Time Stop Time Status Last Admin Dose Admin Albuterol/ Ipratropium 3 ml ONCE ONCE INH 01/26/23 08:00 01/26/23 08:01 DC 01/26/23 07:52 3 ML Vital Signs/I&O 01/26/23 07:37 Temp 36.5 Pulse 94 Resp 22 B/P (MAP) O2 Delivery Room Air Progress Progress Note : Progress Note Seen and evaluated. IV, labs including CBC, CMP, troponin and magnesium ordered. Chest x-ray and EKG ordered. Patient has taken aspirin today. Monitor patient. Differential diagnosis includes COPD exacerbation, cardiac event, pneumonia, arthritic disease I did review echocardiogram from 11/05/2022 which showed normal wall motion and EF of 55 to 65%. Chest x-ray reviewed by me and shows no obvious infiltrate on my interpretation. 0906: Labs reviewed and CBC is normal. CMP is grossly normal with negative BNP and negative troponin. 0929: Toradol 15 mg IV for some side pain. We will initiate outpatient steroids with prednisone burst over 7 days and I will prescribe short course of tramadol. He will follow-up with Dr. Sethi for recheck and further evaluation and for represcription of his Xanax. Discharged home with return precautions. Patient verbalized understanding of instructions and agreement with plan. Initial ECG Impression Date: Jan 26, 2023 Initial ECG Impression Time: 07:55 Initial ECG Rate: 85 Initial ECG Rhythm: Normal Sinus Comment Sinus rhythm with normal axis. No evidence of ST elevation [place]. Interpreted by me. Diagnostic Imaging Diagonstic Imaging: Xray Plain Films/CT/US/NM/MRI: chest Comments [facility], [place] NAME: GREYSONLAZARO Foster [facility] REC#: [id number] PT STATUS: REG ER : 1950 PHYSICIAN: SALOMON BLANCHARD MD ADMIT DATE: 01/26/23/ER Draft Date of Exam:01/26/23 CHEST 1 VIEW, AP/PA ONLY INDICATION: Chest pain. TECHNIQUE: Single view chest at 8:04 AM. CORRELATION STUDY: 11/05/2022. FINDINGS: Heart size within normal limits. Mediastinum appears more prominent from prior. Vasculature overall is within normal limits. The lungs are clear with no consolidating infiltrate. There is no significant effusion or pneumothorax. IMPRESSION: Negative appearing single view chest. Mediastinum appearing slightly more prominent from prior, likely accentuated by patient positioning and technique. Dictated on workstation # [id number] Dict: 01/26/23 0816 Trans: 01/26/23 0819 [id number] Interpreted by: JESUS MILLS DO Electronically signed by: Departure Impression Primary Impression: Arthralgia Qualified Codes: M25.50 - Pain in unspecified joint Additional Impression: COPD (chronic obstructive pulmonary disease) Qualified Codes: J41.0 - Simple chronic bronchitis Disposition: 01 HOME, SELF-CARE Condition: Stable Departure-Patient Inst. Decision time for Depature: 09:30 Referrals: LAZARO SETHI DO (PCP/Family) Primary Care Physician Patient Instructions: Chronic obstructive pulmonary disease (COPD), Muscle and Bone Pain (DC) Add. Discharge Instructions: All discharge instructions reviewed with patient and/or family. Voiced un derstanding. Your pain may be related to arthritis. Your breathing difficulty may be related to COPD. Take medications as directed. Continue use of albuterol inhaler as needed for shortness of breath. Follow-up with Dr. Sethi this week for recheck and further evaluation. Return for worse pain, fever, vomiting, weakness, breathing problems or other concerns as needed. Scripts Tramadol HCl (Tramadol HCl) 50 Mg Tablet 50 MG PO Q6H PRN for PAIN for 7 Days, #20 TAB 0 Refills Prov: SALOMON BLANCHARD MD 01/26/23 Prednisone (Prednisone) 20 Mg Tab 40 MG PO DAILY, #14 TAB 0 Refills Prov: SALOMON BLANCHARD MD 01/26/23 Copy Copies To 1: LAZARO SETHI TIMOTHY D MD Jan 26, 2023 07:49
[2023-01-26 07:54] LABS: BASOPHILS % (AUTO) 1 % (0-10); EOSINOPHILS # (AUTO) 0.2 10^3/uL (0.0-0.3); EOSINOPHILS % (AUTO) 4 % (0-10); HEMATOCRIT 44 % (40-54); HEMOGLOBIN 14.7 g/dL (13.3-17.7); LYMPHOCYTES # (AUTO) 1.4 10^3/uL (1.0-4.0); LYMPHOCYTES % (AUTO) 22 % (12-44); MEAN CORPUSCULAR HEMOGLOBIN 29 pg (25-34); MEAN CORPUSCULAR HGB CONC 33 g/dL (32-36); MEAN CORPUSCULAR VOLUME 87 fL (80-99); MEAN PLATELET VOLUME 9.5 fL (9.0-12.2); MONOCYTES # (AUTO) 0.5 10^3/uL (0.0-1.0); MONOCYTES % (AUTO) 8 % (0-12); NEUTROPHILS % (AUTO) 65 % (42-75); PLATELET COUNT 219 10^3/uL (130-400); WHITE BLOOD COUNT 6.2 10^3/uL (4.3-11.0)
[2023-01-26 07:59] LABS: ALBUMIN 4.4 GM/DL (3.2-4.5); CHLORIDE 96 MMOL/L (98-107); POTASSIUM 3.7 MMOL/L (3.6-5.0); SODIUM 135 MMOL/L (135-145)
[2023-01-26 08:00] LABS: CALCIUM 9.4 MG/DL (8.5-10.1)
[2023-01-26] MEDS ORDERED: RT-Ipratropium/Albuterol NEB 3 ML VIAL INH ONE (08:00)
[2023-01-26 08:01] LABS: GLUCOSE 146 MG/DL (70-105)
[2023-01-26 08:02] LABS: TOTAL PROTEIN 8.1 GM/DL (6.4-8.2)
[2023-01-26 08:03] LABS: BILIRUBIN,TOTAL 0.8 MG/DL (0.1-1.0); CARBON DIOXIDE 25 MMOL/L (21-32)
[2023-01-26 08:05] LABS: ALKALINE PHOSPHATASE 57 U/L (40-136); CREATININE SERUM 1.37 MG/DL (0.60-1.30); GFR ESTIMATED 55
[2023-01-26 08:06] LABS: BUN/CREATININE RATIO 11
[2023-01-26 08:08] LABS: ALANINE AMINOTRANSFERASE 20 U/L (0-55); MAGNESIUM 1.8 MG/DL (1.6-2.4)
--- NOTE | 2023-01-26 08:20 | Diagnostic Imaging Report ---
INDICATION: Chest pain. TECHNIQUE: Single view chest at 8:04 AM. CORRELATION STUDY: 11/05/2022. FINDINGS: Heart size within normal limits. Mediastinum appears more prominent from prior. Vasculature overall is within normal limits. The lungs are clear with no consolidating infiltrate. There is no significant effusion or pneumothorax. IMPRESSION: Negative appearing single view chest. Mediastinum appearing slightly more prominent from prior, likely accentuated by patient positioning and technique. Dictated by: Dictated on workstation # [id number]
[2023-01-26] MEDS ORDERED: KETOROLAC INJ 30 MG/ML VIAL IVP STA ×2 (09:26→09:27)
[2023-01-26] MEDS ORDERED: PRD20T PO (09:32)
[2023-01-26] MEDS ORDERED: TRM50T PO (09:32)
[2023-01-26 09:56] VITALS: BP 146/102
== END 2023-01-26 09:56 | disposition home or self-care (01) ==
LOC: EDUNIT# 07:32 → ER 07:33
DX: M25.50 Pain in unspecified joint (principal); J44.9 Chronic obstructive pulmonary disease, unspecified; F17.210 Nicotine dependence, cigarettes, uncomplicated
CPT/HCPCS: 36415; 71045; 80053; 83735; 83880; 84484; 85025; 86141; 93005; 93041